=== PATIENT | female | born 1950 | race Caucasian/White ===

== ENCOUNTER 2022-04-06 20:05 | Emergency (ER) | payer MEDICARE, SELFPAY ==
--- NOTE | 2022-04-06 20:23 | CRLHL7_ITS ---
For Patients: As a result of the Century Cures Act, medical imaging exams and procedure reports are released immediately into your electronic medical record. You may view this report before your referring provider. If you have questions, please contact your health care provider. CLINICAL HISTORY: Right calf pain TECHNIQUE: A compression venous ultrasound exam was performed of the right lower extremity using heath-scale imaging, color Doppler and spectral Doppler analysis. FINDINGS: Sonographic imaging of the right lower extremity demonstrates normal compressibility and color Doppler venous blood flow within the common femoral vein, deep femoral vein, and the proximal greater saphenous vein. Within the thigh, the femoral vein is patent and compressible. At a lower level, the popliteal and posterior tibial veins also show normal compressibility and color Doppler venous blood flow. Limited imaging of the contralateral groin demonstrates a normal spectral waveform and color Doppler venous blood flow within the left common femoral vein. Along the right lateral calf there is thrombosed superficial varicose vein. IMPRESSION: No evidence of deep vein thrombosis within the right lower extremity. Thrombosed superficial varicose vein in the right lateral calf. Dictated by Ce Gleason MD @ 04/06/2022 10:15:27 PM (Electronically Signed)
[2022-04-06 20:25] VITALS: BP 135/78; PULSE 89; RESP 20; TEMP 36.7; O2SAT 99; BMI 20.3
[2022-04-06 22:38] VITALS: BP 125/70; PULSE 79; RESP 20; TEMP 36.8; O2SAT 99
--- OUTSIDE RECORDS SUMMARY | 2022-04-06 22:50 | XMS_ITS | Encounter Summary ---
:1950 Author Organization [facility] Address [address] [place] [address] Care Team Providers Name Role Phone Needs Pcp, Assignment Primary Care Provider Reason for Visit Reason Comments INJURY, LEG Encounter Details Date Type Department Care Team Description 02/03/2015 Hospital Encounter [facility] Lozano Pain of right lower extremity; Ignacia Colón MD Abrasion, leg w/o infection; [address] Contusion of leg, right, initial encounter [place] [id number] Social History Tobacco Use Types Packs/Day Years Used Date Smoking Tobacco: Never Assessed Sex Assigned at Date Recorded Not on file documented as of this encounter Last Filed Vital Signs Vital Sign Reading Time Taken Comments Blood Pressure 97/57 02/03/2015 4:39 PM CDT Pulse 71 02/03/2015 4:39 PM CDT Temperature 36.6 ??C (97.9 ??F) 02/03/2015 4:39 PM CDT Respiratory Rate 16 02/03/2015 4:39 PM CDT Oxygen Saturation - - Inhaled Oxygen Concentration - - Weight - - Height - - Body Mass Index - - documented in this encounter Medications at Time of Discharge Medication Sig Dispensed Refills Start Date End Date ALBUterol sulfate HFA 108 Inhale 2 puffs 0 2014 (90 BASE) MCG/ACT inhaler every 6 hours as needed for Wheezing. beclomethasone (QVAR) 40 Inhale 2 times 0 015 MCG/ACT inhaler daily. Rinse mouth/gargle after use. levothyroxine (SYNTHROID) Take 50 mcg by 0 2014 50 MCG tablet mouth daily (every 24 hours). ALBUterol sulfate HFA Inhale 2 puffs 0 02/03/2015 12/16/2015 inhalation every 6 hours as needed for Wheezing. beclomethasone (aka QVAR) Inhale 2 times 0 201412/16/2015 40 MCG/ACT inhalation daily. Rinse mouth/gargle after use. levothyroxine (aka Take 50 mcg by 0 02/03/2015 SYNTHROID) tablet mouth daily (every 24 hours). documented as of this encounter ED Notes Cole Lozano MD - 02/03/2015 6:13 PM CDT Images from the original note were not included. Subjective: Patient ID: Lenora Suggs is an 64 y.o. female. Chief Complaint: HPI Comments: fell off horse yesterday abrasion calf from hoof-right leg red- sore and vary swollen. Patient describes having been booked off the horse and as she was falling was hit by the foot for the horse on her right lower leg. She's noted bruising swelling and pain. Because of redness is here concerned about possible infection. She been able to walk without too much increased pain problem. Denies back or hip pain. No neck pain. Believe she is current on immunizations relating boosted a couple years ago another clinic. The history is provided by the patient. ROS Objective: BP 97/57 mmHg Pulse 71 Temp(Src) 36.6 ??C (97.9 ??F) (Oral) Resp 16 Physical Exam Constitutional: She is oriented to person, place, and time. She appears well-developed. HENT: Head: Normocephalic. Eyes: Conjunctivae are normal. Neck: Normal range of motion. Neck supple. Musculoskeletal: Legs: Neurological: She is alert and oriented to person, place, and time. She has normal reflexes. Coordination normal. Skin: She is not diaphoretic. Psychiatric: She has a normal mood and affect. Procedures X-ray right tib-fib: No evidence of acute bony abnormalities. Assessment: Diagnoses of Pain of right lower extremity, Abrasion, leg w/o infection, and Contusion of leg, right, initial encounter were pertinent to this visit. MDM Plan: A superficial abrasion will treat with topical antibacterial ointment and nonstick bandaging we applied bacitracin Telfa and a stockinette dressing. Relative to the bruising changes expected color changes are discussed the expected local warmth do to inflammation in the area. Monitor for streaking of redness up the leg or fever or increased swelling or drainage from the wound. Activities as tolerated elevate the leg to help reduce swelling. May dose some ibuprofen. Will continue with cool compresses as next 24 hours and then transition over to warm moist compress to facilitate resolution of the bruising. Patient believes she is current on immunizations provided elsewhere. documented in this encounter Miscellaneous Notes Medication History - Demarcus Sharma MD - 02/03/2015 6:13 PM CDT INPATIENT MEDS Encounter Date: 02/03/15 levothyroxine (SYNTHROID) 50 mcg tablet Start Date:-, End Date:-, Frequency:DAILY *No Administrations Recorded beclomethasone (QVAR) 40 mcg/actuation inhaler Start Date:-, End Date:-, Frequency:2 TIMES DAILY *No Administrations Recorded albuterol HFA 90 mcg/actuation inhaler Start Date:-, End Date:-, Frequency:EVERY 6 HOURS PRN *No Administrations Recorded ED AVS Snapshot - Demarcus Sharma MD - 02/03/2015 6:13 PM CDT Images from the original note were not included. [facility] [address] [place] [address] Dept: [phone] [email or web address] Lenora Suggs 02/03/2015 4:42 PM Hospital Encounter Description: Female : 1950 Department: [facility] Thank you for choosing [facility] for your health care visit with Cole Lozano MD. We are happy to care for you and provide this summary of your visit. Your primary certified caregiver iscurrently listed as Assignment Needs PCP (General). HERE IS WHAT YOU NEED TO KNOW To learn how you can take steps to stay as healthy as you can be visit [email or web address] [email or web address] References/Attachments BRUISES ([email or web address]) HERE IS WHAT YOU NEED TO DO Call your clinic if: You develop new symptoms Your symptoms worsen unexpectedly You are not improving as expected You have questions about your visit or medications HERE IS INFORMATION FROM TODAY'S VISIT Reason for Visit Leg Injury Reason for Visit History Health issues considered by your clinician today Pain of right lower extremity Abrasion, leg w/o infection Contusion of leg, right, initial encounter If you had any tests, you will be notified of your abnormal results by your clinic. We Performed the Following XR Tibia and Fibula * Right (Standard) Medications administered today None MEDICATIONS As of today's visit, these are your current medications DOSAGE albuterol HFA 90 mcg/actuation inhaler (Taking) Inhale 2 puffs every 6 hours as needed for Wheezing. beclomethasone (QVAR) 40 mcg/actuation inhaler (Taking) Inhale 2 times daily. Rinse mouth/gargle after use. levothyroxine (SYNTHROID) 50 mcg tablet (Taking) Take 50 mcg by mouth daily (every 24 hours). Vital signs from your visit Your Vital Signs Were BP Pulse Temp(Src) Resp Smoking Status 97/57 mmHg 71 36.6 ??C (97.9 ??F) (Oral) 16 Never Smoker Allergies as of 02/03/2015 Bactrim [Sulfamethoxazole-Trimethoprim] 02/03/2015 Immunization History Never Reviewed No immunizations on file. About You Date Of Sex Race Ethnicity Preferred Language 1950 Female White Non- [place] This document contains confidential information about your health and care. It is provided directlyto you for your personal, private use only. documented in this encounter Plan of Treatment Not on filedocumented as of this encounter Procedures Procedure Name Priority Date/Time Associated Diagnosis Comme nts XR TIBIA FIBULA RT Routine 02/03/2015 5:33 PM Pain of right lo wer Results for this 2 VIEWS CDT extremity procedure are i n the results section. documented in this encounter Results XR Tibia Fibula Rt 2 Views (02/03/2015 5:33 PM CDT) Anatomical Region Laterality Modality Lower Extremity, Knee, Leg, Foot & Ankle Other Specimen (Source) Anatomical Location Collection Method / Collectio n Time Received Time / Laterality Volume Narrative 02/03/2015 6:03 PM CDT COMPARISON: ??None. FINDINGS: ??No fracture of the right tib ia or fibula is identified. ??Joint spaces appear to be within normal limits. ??No other significant abnormality is identified. Procedure Note Martha Mckinley MD - 11/27/2015Formattin g of this note might be different from the original. COMPARISON: None. FINDINGS: No fracture of the right tibia or fibula is identified. Joint spaces appear to be within normal limits. No other significant abnormality is identified. Cole Lozano MD RAD GD documented in this encounter Visit Diagnoses Diagnosis Pain of right lower extremity Abrasion, leg w/o infection Hip, thigh, leg, and ankle, abrasion or friction burn, without mention of infection Contusion of leg, right, initial encount er Triage Assessment Note - Luciana Marcial RN - 02/03/2015 4:37 PM CDT fell off horse yesterday abrasion calf from hoof-right leg red-sore and vary swollen documented in this encounter Care Teams Manager Bridge Relationship Specialty Start Date End Date Needs Pcp, Assignment PCP - General 02/03/15 [place] [address] documented as of this encounter
--- OUTSIDE RECORDS SUMMARY | 2022-04-06 22:50 | XMS_ITS | Clinical Summary ---
:1950 [facility] Address [address] [place] [address] Care Team Providers Name Role Phone Needs Pcp, Assignment Primary Care Provider Source Comments You are receiving this document as you are listed as the primary care provider,follow-up provider, or the patient has been referred to you for consultation.This is in compliance with the Medicare and Medicaid EHR Incentive Program,which states Providers who transition their patient to another setting of careor provider of care or refers their patient to another provider of care shouldprovide summarycare record for each transition of care or referral. [facility] Allergies Active Allergy Reactions Severity Noted Date Comments Sulfamethoxazole-Trimethoprim 02/03/2015 Medications Medication Sig Dispensed Refills Start Date End Date Status levothyroxine Take 50 mcg by 0 02/03/2015 Active (SYNTHROID) 50 MCG mouth daily tablet (every 24 hours). beclomethasone (QVAR) 40 Inhale 2 times 0 02/03/2015 Active MCG/ACT inhaler daily. Rinse mouth/gargle after use. ALBUterol sulfate HFA Inhale 2 puffs 0 02/03/2015 Active 108 (90 BASE) MCG/ACT every 6 hours as inhaler needed for Wheezing. Social History Tobacco Use Types Packs/Day Years Used Date Smoking Tobacco: Never Smokeless Tobacco: Never Sex Assigned at Date Recorded Not on file Last Filed Vital Signs Vital Sign Reading Time Taken Comments Blood Pressure 112/62 06/09/2019 2:56 PM TEXTILE DESIGNER Pulse 73 06/09/2019 2:56 PM TEXTILE DESIGNER Temperature 36.8 ??C (98.3 ??F) 06/09/2019 2:56 PM TEXTILE DESIGNER Respiratory Rate 20 06/09/2019 2:56 PM TEXTILE DESIGNER Oxygen Saturation 100% 06/09/2019 2:56 PM TEXTILE DESIGNER Inhaled Oxygen Concentration - - Weight - - Height - - Body Mass Index - - Plan of Treatment Health Maintenance Due Date Last Done Comments Colon Cancer Screening Plan Due 1950 Hep C Screening (Preventive 1950 Services) Mammogram 1950 COVID-19 Vaccine (#1) 1950 Adult Preventive Visit 1967 DTaP/Tdap/Td (1 - Tdap) 1968 Cholesterol 1994 Zoster/Shingles (1 of 2) 1999 Pneumococcal 65+ Yrs (1 - PCV) 2014 Influenza (#1) 2022 HepA Aged Out No longer eligib le based on patient's age to complete this topic HepB Aged Out No longer eligib le based on patient's age to complete this topic Hib Aged Out No longer eligib le based on patient's age to complete this topic IPV (Polio) Aged Out No longer eligib le based on patient's age to complete this topic MCV4 Aged Out No longer eligib le based on patient's age to complete this topic Care Teams Plug Drill Operator Relationship Specialty Start Date End Date Needs Pcp, Assignment PCP - General 02/03/15 [place] [address]
--- OUTSIDE RECORDS SUMMARY | 2022-04-06 22:50 | XMS_ITS | Encounter Summary ---
:1950 Author Organization [facility] Address [address], [place] [address] Care Team Providers Name Role Phone Needs Pcp, Assignment Primary Care Provider Encounter Details Date Type Department Care Team Description 08/22/2015 Notes/Orders CODING DEPT ONLY 5050 Needs Pcp, Assignment [facility] [place] [facility] [address] [place] [address] [address] Social History Tobacco Use Types Packs/Day Years Used Date Smoking Tobacco: Never Assessed Sex Assigned at Date Recorded Not on file documented as of this encounter Plan of Treatment Not on filedocumented as of this encounter Visit Diagnoses Not on filedocumented in this encounter Care Teams Drying Room Operator Relationship Specialty Start Date End Date Needs Pcp, Assignment PCP - General 02/03/15 [place] [address] documented as of this encounter
--- OUTSIDE RECORDS SUMMARY | 2022-04-06 22:50 | XMS_ITS | Clinical Summary ---
:1950 Author Organization [facility] [place] [address] Care Team Providers Name Role Phone Abi Mccracken Primary Care Provider [phone] Allergies Active Allergy Reactions Severity Noted Date Comments Sulfamethoxazole-Trimethoprim Rash 03/25/2015 Happened around 1980 Medications Medication Sig Dispensed Refills Start Date End Date Status albuterol HFA (PRO-AIR; Inhale 1-2 Puffs 0 Active VENTOLIN; PROVENTIL) 90 by mouth every 4 mcg/actuation inhaler hours if needed. Qvar RediHaler 80 Inhale 1 Puff by 0 09/21/2020 Active mcg/actuation HFAb HFA mouth 2 times inhaler daily. 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 Active Problems Problem Noted Date Congenital hypothyroidism without goiter Encounters Date Type Specialty Care Team Description 02/14/2022 Refill Abi Mccracken PA R efill Request (Synthroid) from Last 3 Months Immunizations Name Administration Dates Next Due Influenza, IIV3 (Age >=3 years) 04/04/2006 Pneumococcal Poly,23-Valent (Pneumovax) 11/04/2008 Tdap 10/04/2007 Family History Medical History Relation Name Comments Osteoarthritis Brother 1 Good Health Brother 2 Cancer-colon Father Hypothyroidism Father Leukemia Father Rheum arthritis Maternal Grandmother Cancer-colon Mother Hiatal hernia Mother Good Health Sister Cancer-breast No Family History Relation Name Status Comments Brother 1 Brother 2 Father (Age 89) Born 1920 Maternal Grandmother Mother (Age 85) Born 1925 Sister Social History Tobacco Use Types Packs/Day Years Used Date Never Smoker Smokeless Tobacco: Never Used Alcohol Use Standard Drinks/Week Comments Not Currently 0 (1 standard drink = 0.6 oz pure alcoho l) rarely Alcohol Habits Answer Date Recorded How often do you have a drink containing alcohol? Not asked How many drinks containing alcohol do you have on a typical Not asked day when you are drinking? How often do you have six or more drinks on one occasion? No t asked Comment: rarely 01/17/2021 Sex Assigned at Date Recorded Not on file Obstetrics History Para Term AB IAB SAB Ectopic Multiple Living Live Births 4 3 Date Outcome GA Total Labor/2nd/3rd Weight Sex Delivery Anes PTL Coleen A 1 A5 Name Clin Labor Para Para Para Comments Menarche occurred at age 16. Menopausal since 2000. No history of abnormal PAPs. Last Filed Vital Signs Vital Sign Reading Time Taken Comments Blood Pressure 116/64 01/18/2021 8:44 AM CDT Pulse 63 01/18/2021 8:44 AM CDT Temperature - - Respiratory Rate - - Oxygen Saturation - - Inhaled Oxygen Concentration - - Weight 49.9 kg (110 lb) 01/18/2021 8:44 AM CDT Height 163.8 cm (5' 4.5) 01/18/2021 8:44 AM CDT Body Mass Index 18.59 01/18/2021 8:44 AM CDT Plan of Treatment Health Maintenance Due Date Last Done Comments COVID-19 vaccine series (#1) 1950 Zoster (shingles) series for age 50+ (1 of 1999 2) Pneumococcal series for age 65+ (2 - PCV) 11/04/20092008 Mammogram for age 45-75 07/11/2017 07/11/2016, 11/09/2008 Tetanus booster 10/03/2017 10/04/2007 BMI (ht and wt on same day) for age 18+ 01/18/2022 01/19/20 21 Depression screening for age 12+ 01/18/2022 01/18/2021 Medicare Wellness for age 65+ 01/18/2022 01/18/2021 Influenza for age 65+ 02/08/2022 04/04/2006 Fecal testing sDNA-FIT (Cologuard) for age 1003/21/202403/21 45-75 Lipids for age 45-75 01/18/2026 01/18/2021 Tdap Completed 10/04/2007 DEXA/DXA scan for age 65+ Completed 01/18/2021 Hepatitis C screening for age 18-79 Completed 01/18/2021 Results Not on filefrom Last 3 Months Insurance Payer Benefit Plan / Subscriber ID Effective Dates Phone Addre ss Type Group [employer] [place] [employer] MEDICARE [id number] 2019-Present [address] [place] [address] Care Teams Kelp Or Seagrass Gatherer Relationship Specialty Start Date End Date Abi Mccracken PA PCP - General Physician Aviation Maintenance Technician 01/18/21 [id number] [address] [place], [place] [id number]
--- OUTSIDE RECORDS SUMMARY | 2022-04-06 22:50 | XMS_ITS | Encounter Summary ---
:1950 Author Organization [employer] Address [address] [place] [address] Care Team Providers Name Role Phone Needs Pcp, Assignment Primary Care Provider Encounter Details Date Type Department Care Team Description 06/09/2019 Hospital Encounter [facility] Adebayo Gray, Amenorrhea; Care MD Acute bronchitis, unspecified organism; [address] [address] Pain of left lower extremity; [address] [employer] Mild asthma with acute exacerbation, [place] [address] [phone] Social History Tobacco Use Types Packs/Day Years Used Date Smoking Tobacco: Never Smokeless Tobacco: Never Sex Assigned at Date Recorded Not on file documented as of this encounter Last Filed Vital Signs Vital Sign Reading Time Taken Comments Blood Pressure 112/62 06/09/2019 2:56 PM CONDOMINIUM MANAGER Pulse 73 06/09/2019 2:56 PM CONDOMINIUM MANAGER Temperature 36.8 ??C (98.3 ??F) 06/09/2019 2:56 PM CONDOMINIUM MANAGER Respiratory Rate 20 06/09/2019 2:56 PM CONDOMINIUM MANAGER Oxygen Saturation 100% 06/09/2019 2:56 PM CONDOMINIUM MANAGER Inhaled Oxygen Concentration - - Weight - - Height - - Body Mass Index - - documented in this encounter Discharge Instructions Discharge InstructionsAdebayo Gray MD - 06/09/2019 3:38 PM CST Images from the original note were not included. Bronchitis: Care Instructions Your Care Instructions Bronchitis is inflammation of the bronchial tubes, which carry air to the lungs. The tubes swell andproduce mucus, or phlegm. The mucus and inflamed bronchial tubes make you cough. You may have trouble breathing. Most cases of bronchitis are caused by viruses like those that cause colds. Antibiotics usually do not help and they may be harmful. Bronchitis usually develops rapidly and lasts about 2 to 3 weeks in otherwise healthy people. Follow-up care is a loomis part of your treatment and safety. Be sure to make and go to all appointments, and call your doctor if you are having problems. It's also a good idea to know your test results and keep a list of the medicines you take. How can you care for yourself at home? ?? Take all medicines exactly as prescribed. Call your doctor if you think you are having a problem with your medicine. ?? Get some extra rest. ?? Take an loku-irs-xkkchoz pain medicine, such as acetaminophen (Tylenol), ibuprofen (Advil, Motrin), or naproxen (Aleve) to reduce fever and relieve body aches. Read and follow all instructions on the label. ?? Do not take two or more pain medicines at the same time unless the doctor told you to. Many pain medicines have acetaminophen, which is Tylenol. Too much acetaminophen (Tylenol) can be harmful. ?? Take an qpdf-ukx-dzerebi cough medicine that contains dextromethorphan to help quiet a dry, hacking cough so that you can sleep. Avoid cough medicines that have more than one active ingredient. Readand follow all instructions on the label. ?? Breathe moist air from a humidifier, hot shower, or sink filled with hot water. The heat and moisture will thin mucus so you can cough it out. ?? Do not smoke. Smoking can make bronchitis worse. If you need help quitting, talk to your doctor about stop-smoking programs and medicines. These can increase your chances of quitting for good. When should you call for help? Call anytime you think you may need emergency care. For example, call if: ? You have severe trouble breathing. ?? Call your doctor now or seek immediate medical care if: ? You have new or worse trouble breathing. ? You cough up dark brown or bloody mucus (sputum). ? You have a new or higher fever. ? You have a new rash. ??Watch closely for changes in your health, and be sure to contact your doctor if: ? You cough more deeply or more often, especially if you notice more mucus or a change in the color of your mucus. ? You are not getting better as expected. Where can you learn more? 1. Go to https://[employer]/Cloudynrary or [employer]. 2. Enter H333 in the search box. Current as of: November 16, 2018 Content Version: 12.2 ?? 2762-6269 [employer]. Care instructions adapted under license by your healthcare professional. If you have questions about a medical condition or this instruction, always ask your healthcare professional. [employer] disclaims any warranty or liability for your use of this information. OMINIUM MANAGER documented in this encounter Medications at Time [...] MCG tablet mouth daily (every 24 hours). predniSONE (DELTASONE) 20 Take 1 Tablet by 5 Tablet 0 05/1206/14/2019 MG tablet mouth daily for 5 days. documented as of this encounter ED Notes Adebayo Gray MD - 06/09/2019 3:49 PM CST Images from the original note were not included. SUBJECTIVE: Lenora Suggs is a 69 y.o.female presented today to the clinic complaining of cough that started since 05/25/2019. Patient stated that the cough is dry and associated with chills. She alsostated that it associated with low-grade fever that has resolved. Her highest temperature was 100.5??. She also feels generalized body ache. She has history of asthma, she has been only on albuterol p.r.n.. She stated that she has not used it yet. She denies any shortness of breath or wheezing. She also complain of left lower leg pain. She stated that she slipped and fell on eyes 1 month ago. She has been having this pain on and off since then. She denies any difficulty ambulating. She rated the pain mild in severity. Adverse Drug Reactions: Sulfamethoxazole-trimethoprim Medications: ALBUterol sulfate HFA, beclomethasone, and levothyroxine Past medical History: There is no problem list on file for this patient. Family History: No family history on file. Social History: Social History Tobacco Use ??? Smoking status: Never Smoker ??? Smokeless tobacco: Never Used Substance Use Topics ??? Alcohol use: Not on file ??? Drug use: Not on file Review of Systems: All systems were reviewed and found to be negative except as noted below. OBJECTIVE: General: NAD Skin: Mucous membranes are moist, no sign of dehydration. Head: Normocephalic. Eyes: PERRLA, full EOM. External exams normal. Ears: Normal pinnae, canals. TMs: normal Nose: Patent, without deformity, but with some rhinorrhea. Throat: Postnasal drainage noted. Moist mucous membranes without lesions, erythema, or exudate. Neck: Supple. Respiratory: Normal respiratory effort. Bilateral mild rhonchi. No rales. Heart: RR without murmurs, rubs, or gallops. Musculoskeletal: Tenderness in the lateral left lower leg mostly around the upper part. Gait is normal. Power is 5/5 in severity. Reflexes +2 bilaterally. No swelling or redness noted. Vital Signs: BP 112/62 (BP Location: Left Arm, BP Cuff Size: Regular) Pulse 73 Temp 36.8 ??C (98.3 ??F) (Oral) Resp 20 SpO2 100% ? No X-Rays: X-rays are obtained and interpreted independently by myself: No results found. Labs: Labs Reviewed HCG,QUALITATIVE, SERUM Orders Placed This Encounter ??? Test Screen Blood (SPREG) ??? predniSONE (DELTASONE) 20 MG tablet ASSESSMENT: 2. Acute bronchitis, unspecified organism 3. Pain of left lower extremity 4. Mild asthma with acute exacerbation, unspecified whether persistent (HRC) PLAN: Medications - No data to display Medications Prescribed this Visit Disp Refills Start End predniSONE (DELTASONE) 20 MG tablet 5 Tablet 0 06/09/2019 06/14/2019 Take 1 Tablet by mouth daily for 5 days. Oral Cough most likely viral bronchitis. Given her history of asthma will prescribe prednisone if her symptoms get worse to start taking it. For now she will start using albuterol every 4 hours as needed. Regarding her leg pain, as most likely musculoskeletal. Patient is reassured. Icing and jopq-gri-okwcdkf medication advised. If pain gets worse she needs to return back or follow up with primary care. Side effects were discussed. Increase clear fluid intake. Symptomatic care, plenty of fluids, monitor for fever, chills, chest pain, or shortness of breath. RTC p.r.n. OMINIUM MANAGER documented in this encounter Plan of Treatment Scheduled Orders Name Type Priority Associated Diagnoses Order S chedule Test Screen Lab STAT Amenorrhea Once t ramona starting now Blood (SPREG) for 1 Occurren helena starting 06/16/2019 unti l 06/16/2019 documented as of this encounter Visit Diagnoses Diagnosis Amenorrhea Absence of menstruation Acute bronchitis, unspecified organism Pain of left lower extremity Mild asthma with acute exacerbation, uns pecified whether persistent (HRC) Triage Assessment Note - Isis Myers RN - 06/09/2019 2:51 PM CST Pt has had cold symptoms, sinus pressure, and a productive cough since May 25. She had intermittent fever, body aches, and weakness. Tmax 100.5F. She also slipped on the snow last month and has had intermittent leg aches. She has been having morepain in that leg recently. OMINIUM MANAGER documented in this encounter Care Teams Health Analyst Relationship Specialty Start Date End Date Needs Pcp, Assignment PCP - General 02/03/15 [place] [address] documented as of this encounter
[2022-04-06 23:42] VITALS: BP 125/70; PULSE 79; RESP 20; TEMP 36.8
--- NOTE | 2022-04-07 00:55 | ED_ITS ---
HPI - General Adult General Date Seen: 04/06/22 Chief complaint: Unspecified Complaint, Adult Stated complaint: Blood clot right leg Time Seen by Provider: 04/06/22 21:44 Source: patient Mode of arrival: ambulatory Limitations: no limitations History of Present Illness HPI narrative: Patient is a delightful 72-year-old female presents here with the swelling on her right leg today and worried that she has a blood clot. He has noted today she has had in the past, she has has no history of previous DVTs however, and no history of use of anticoagulants. She has really no immobilization no history of cancer. But presents here to the emergency room for evaluation of this. It is on her right lower extremity. On her calf. She denies a history of rapid heart rate chest pain coughing passing out, or hemoptysis Related Data Home Medications Medication Instructions Recorded Confirmed albuterol sulfate 90 mcg/actuation inhalation 01/16/22 01/16/22 aerosol inhaler beclomethasone dipropionate 80 inhalation 01/16/22 01/16/22 mcg/actuation HFA breath activated aerosol (Qvar RediHaler) fluticasone propionate 50 spray intranasal 01/16/22 01/16/22 mcg/actuation nasal spray,suspension levothyroxine 50 mcg tablet 50 mcg PO 01/16/22 01/16/22 (Synthroid) Previous Rx's Medication Instructions Recorded albuterol sulfate 90 mcg/actuation 2 puff inhalation Q6H PRN 01/16/22 aerosol inhaler (Ventolin HFA) shortness of breath or wheezing #8.5 grams azithromycin 250 mg tablet 250 mg PO QDAY #6 tabs 01/16/22 Allergies Allergy/AdvReac Type Severity Reaction Status Date / Time sulfamethoxazole Allergy Mild Rash Verified 01/16/22 13:35 [From Bactrim] trimethoprim [From Bactrim] Allergy Mild Rash Verified 01/16/22 13:35 Review of Systems Status of ROS: Reports: 10 or more systems reviewed and unremarkable except as noted in History and below PFSH PFS Medical History Asthma DVT (deep venous thrombosis) Surgical History No significant past surgical history Social History Smoking Status: Never smoker Second hand tobacco smoke exposure: No How often do you have a drink containing alcohol: never How often do you have six or more drinks on one occasion: Never AUDIT-C Alcohol total score: 0 Non-prescribed substance use: denies use Exam Narrative: Exam Narrative: On examination there is a superficial area within 1 of the varicosities on her right leg, consistent with a superficial thrombophlebitis. There is no calf swelling, her distal pulses are normal, and there is no open wounds. Const: Vital Signs, click to edit/add: Vital Signs - 24 hr 04/06/22 20:25 04/06/22 22:38 04/06/22 23:42 Temperature 98.0 F 98.2 F 98.2 F Pulse Rate [Right Pulse Oximeter] 89 79 79 Respiratory Rate 20 20 20 Blood Pressure [Ri ght Upper Arm] 135/78 125/70 125/70 Pulse Oximetry 99 99 Oxygen Delivery Me thod Room Air Room Air Documenting provider has reviewed patient's vital signs: yes Course Vital Signs Vital signs: Initial Vital Signs Temperature 98.0 F 04/06/22 20:25 Temperature Source Temporal Artery Scan 04/06/22 20:25 Pulse Rate 89 04/06/22 20:25 Respiratory Rate 20 04/06/22 20:25 Blood Pressure 135/78 04/06/22 20:25 Blood Pressure Mean 97 04/06/22 20:25 Blood Pressure Position Sitting 04/06/22 20:25 Pulse Oximetry 99 04/06/22 20:25 Oxygen Delivery Method 04/06/22 20:25 Vital Signs Temperature 98.0 F 04/06/22 20:25 Pulse Rate 89 04/06/22 20:25 Respiratory Rate 20 04/06/22 20:25 Blood Pressure 135/78 04/06/22 20:25 Pulse Oximetry 99 04/06/22 20:25 Oxygen Delivery Method 04/06/22 20:25 Temperature 98.2 F 04/06/22 23:42 Pulse Rate 79 04/06/22 23:42 Respiratory Rate 20 04/06/22 23:42 Blood Pressure 125/70 04/06/22 23:42 Pulse Oximetry 99 04/06/22 22:38 Oxygen Delivery Method 04/06/22 22:38 Medical Decision Making Differential Diagnosis Differential Diagnosis: DVT, superficial thrombophlebitis, venous stasis, muscle rupture, celluliti Medical Records Medical records reviewed: Yes I reviewed the patient's medical records Imaging Data Venous US: Radiologist's impression: Patient: IRVING GIVENS Facility: [facility] Site . Site : 1950 Study: US Extremity Right LEV RT-04/06/2022 9:35:01 PM Ordering Physician: DAMEON NORWOOD Final Report: CLINICAL HISTORY: Right calf pain TECHNIQUE: A compression venous ultrasound exam was performed of the right lower extremity using heath-scale imaging, color Doppler and spectral Doppler analysis. FINDINGS: Sonographic imaging of the right lower extremity demonstrates normal compressibility and color Doppler venous blood flow within the common femoral vein, deep femoral vein, and the proximal greater saphenous vein. Within the thigh, the femoral vein is patent and compressible. At a lower level, the popliteal and posterior tibial veins also show normal compressibility and color Doppler venous blood flow. Limited imaging of the contralateral groin demonstrates a normal spectral waveform and color Doppler venous blood flow within the left common femoral vein. Along the right lateral calf there is thrombosed superficial varicose vein. IMPRESSION: No evidence of deep vein thrombosis within the right lower extremity. Thrombosed superficial varicose vein in the right lateral calf. Dictated by Ce Gleason MD @ 04/06/2022 10:15:27 PM (Electronic Signature) Discharge Plan Discharge Clinical Impression: Acute superficial venous thrombosis of right lower extremity Patient Disposition: Home, Self-Care Condition: Stable Instructions: Superficial Thrombophlebitis (ED) Additional Instructions: Home rest use of heat, aspirin 1 tablet in the morning 1 tablet at night, the 325. Stall or Prescriptions: No Action albuterol sulfate 90 mcg/actuation HFA aerosol inhaler inhalation levothyroxine [Synthroid] 50 mcg tablet 50 mcg PO Qvar RediHaler 80 mcg/actuation HFA aerosol breath activated inhalation fluticasone propionate 50 mcg/actuation spray,suspension intranasal azithromycin 250 mg tablet 250 mg PO QDAY Qty: 6 0RF Rx Instructions: For 250 mg dose pack: take 500 mg today (day 1), then 250 mg for 4 days (days 2-5) PO albuterol sulfate [Ventolin HFA] 90 mcg/actuation HFA aerosol inhaler 2 puff inhalation Q6H PRN (Reason: shortness of breath or wheezing) Qty: 8.5 0RF Follow Up/Referrals: Kelley Blair PA-C [Primary Care Provider] - Stand Alone Forms: [employer] Info Instructions
== END 2022-04-06 23:42 | disposition home or self-care (01) ==
LOC: ED 22:48
PROVIDERS: Emergency Provider Family Medicine; PCP Physician Assistant Medical
DX: I82.401 Acute embolism and thrombosis of unspecified deep veins of right lower extremity (principal)
CPT/HCPCS: 93971; 99283; 99284

== ENCOUNTER 2022-04-25 10:38 | Outpatient (CLI) | payer MEDICARE, SELFPAY ==
--- OUTSIDE RECORDS SUMMARY | 2022-04-25 11:03 | XMS_ITS | Clinical Summary ---
:1950 Author Organization [facility] [place] [address] Care Team Providers Name Role Phone Abi Mccracken Primary Care Provider [phone] Allergies Active Allergy Reactions Severity Noted [...] ss Type Group UCARE MR [place] MEDICARE [id number] 2019-Present [address] [place] [address] Care Teams Mechanical Energy Engineer Relationship Specialty Start Date End Date Abi Mccracken PA PCP - General Physician Health Promotion Coordinator 01/18/21 [address] [place], [place] [id number]
--- OUTSIDE RECORDS SUMMARY | 2022-04-25 11:03 | XMS_ITS | Encounter Summary ---
:1950 Author Organization [employer] Address [address], [place] [address] Care Team Providers Name Role Phone Needs Pcp, Assignment Primary Care Provider Encounter Details Date Type Department Care Team Description 06/09/2019 Hospital Encounter [facility] Adebayo Gray, Amenorrhea; Care MD Acute bronchitis, unspecified organism; [address] [place] [address] Pain of left lower extremity; [address] [employer] Mild asthma with acute exacerbation, uns [place] [address] [phone] Social History Tobacco Use Types Packs/Day Years Used Date Smoking Tobacco: Never Smokeless Tobacco: Never Sex Assigned at Date Recorded Not on file documented as of this encounter Last Filed Vital Signs Vital Sign Reading Time Taken Comments Blood Pressure 112/62 06/09/2019 2:56 PM GLASS DRILLER Pulse 73 06/09/2019 2:56 PM GLASS DRILLER Temperature 36.8 ??C (98.3 ??F) 06/09/2019 2:56 PM GLASS DRILLER Respiratory Rate 20 06/09/2019 2:56 PM GLASS DRILLER Oxygen Saturation 100% 06/09/2019 2:56 PM GLASS DRILLER Inhaled Oxygen Concentration - - Weight - [...] Get some extra rest. ?? Take an yycy-poq-xmdhakg pain medicine, such as acetaminophen (Tylenol), ibuprofen [...] (Tylenol) can be harmful. ?? Take an bfxu-obo-uibnliq cough medicine that contains dextromethorphan to help [...] can you learn more? 1. Go to https://[employer]/Gen[employer]rary or [employer]. 2. Enter H333 in the search box. Current as of: November 16, 2018 Content Version: 12.2 ?? [id number] [employer]. Care instructions adapted under license by your healthcare professional. If you have questions about a medical condition or this instruction, always ask your healthcare professional. [employer] disclaims any warranty or liability for your use of this information. S DRILLER documented in this encounter Medications at Time [...] likely musculoskeletal. Patient is reassured. Icing and geol-bae-nevrqxl medication advised. If pain gets worse she needs to return back or follow up with primary care. Side effects were discussed. Increase clear fluid intake. Symptomatic care, plenty of fluids, monitor for fever, chills, chest pain, or shortness of breath. RTC p.r.n. S DRILLER documented in this encounter Plan of Treatment [...] been having morepain in that leg recently. S DRILLER documented in this encounter Care Teams Lead Die Molder Relationship Specialty Start Date End Date Needs Pcp, Assignment PCP - General 02/03/15 [place] [address] documented as of this encounter
--- OUTSIDE RECORDS SUMMARY | 2022-04-25 11:03 | XMS_ITS | Clinical Summary ---
:1950 Author Organization [employer] Address [address] [place] [address] Care Team Providers Name Role Phone Needs [...] for each transition of care or referral. [employer] Allergies Active Allergy Reactions Severity Noted Date [...] Blood Pressure 112/62 06/09/2019 2:56 PM GLASS TECHNICIAN Pulse 73 06/09/2019 2:56 PM GLASS TECHNICIAN Temperature 36.8 ??C (98.3 ??F) 06/09/2019 2:56 PM GLASS TECHNICIAN Respiratory Rate 20 06/09/2019 2:56 PM GLASS TECHNICIAN Oxygen Saturation 100% 06/09/2019 2:56 PM GLASS TECHNICIAN Inhaled Oxygen Concentration - - Weight - [...] age to complete this topic Care Teams Clinical Project Leader Relationship Specialty Start Date End Date Needs Pcp, Assignment PCP - General 02/03/15 [place], [place] [address]
--- OUTSIDE RECORDS SUMMARY | 2022-04-25 11:03 | XMS_ITS | Encounter Summary ---
:1950 Author Organization [facility] Address [address], [place] [address] Care Team Providers Name Role Phone Needs Pcp, Assignment Primary Care Provider Encounter Details Date Type Department Care Team Description 08/22/2015 Notes/Orders CODING DEPT ONLY 5050 Needs Pcp, Assignment [facility] [place] [facility] [address] [address] Social History Tobacco Use Types Packs/Day Years Used Date Smoking Tobacco: Never Assessed Sex Assigned at Date Recorded Not on file documented as of this encounter Plan of Treatment Not on filedocumented as of this encounter Visit Diagnoses Not on filedocumented in this encounter Care Teams Director Of Premium Seat Sales Relationship Specialty Start Date End Date Needs Pcp, Assignment PCP - General 02/03/15 [place] [address] documented as of this encounter
--- OUTSIDE RECORDS SUMMARY | 2022-04-25 11:03 | XMS_ITS | Encounter Summary ---
:1950 Author Organization [employer] Address [address] [address] Care Team Providers Name Role Phone Needs Pcp, Assignment Primary Care Provider Reason for Visit Reason Comments INJURY, LEG Encounter Details Date Type Department Care Team Description 02/03/2015 Hospital Encounter [facility] Cole Lozano Pain of right lower extremity; Ignacia Colón MD Abrasion, leg w/o infection; [address] Contusion of leg, right, initial encounter [email or web address] [address] Social History Tobacco Use Types Packs/Day Years [...] from the original note were not included. [facility] [address] [place] [address] Dept: [phone] [email or web address] Lenora Suggs 02/03/2015 4:42 PM Hospital Encounter Description: Female : 1950 Department: [facility] Thank you for choosing [facility] for your health care visit with Cole Lozano MD. We are happy to care for you and provide this summary of your visit. Your primary direct care worker iscurrently listed as Assignment Needs PCP (General). HERE IS WHAT YOU NEED TO KNOW To learn how you can take steps to stay as healthy as you can be visit [email or web address] Discharge References/Attachments BRUISES (TONGAN) HERE IS WHAT YOU NEED TO DO [...] Ethnicity Preferred Language 1950 Female White Non- Latvian This document contains confidential information about your [...] swollen documented in this encounter Care Teams Driver License Technician Relationship Specialty Start Date End Date Needs Pcp, Assignment PCP - General 02/03/15 [place] [address] documented as of this encounter
[2022-04-25 21:22] LABS: Albumin* 4.6 g/dL (3.3-5.0)
[2022-04-25 21:23] LABS: Chloride* 105 mmol/L (96-114); Potassium* 4.2 mmol/L (3.6-5.1); Sodium* 139 mmol/L (135-149)
[2022-04-25 21:25] LABS: Aspartate Amino Transferase* 26 U/L (12-35); Blood Urea Nitrogen* 24 mg/dL (7-30); Carbon Dioxide* 28 mmol/L (20-32); Cholesterol* 218 mg/dL (90-199); Creatinine* 1.1 mg/dL (0.5-1.5); Estimated Glomerular Filt Rate 53 ml/min; Total Protein* 7.6 g/dL (6.0-8.3)
[2022-04-25 21:26] LABS: Alanine Aminotransferase* 22 U/L (4-35); Alkaline Phosphatase* 74 U/L (40-150); Calcium* 9.5 mg/dL (8.4-10.6); Glucose* 115 mg/dL (60-115); HDL Cholesterol* 83 mg/dL (>=50); LDL Cholesterol Calculated 118 mg/dL (<100); Triglycerides* 84 mg/dL (40-149)
[2022-04-25 21:46] LABS: Vitamin D 25 Hydroxy* 56 ng/mL (30-80)
== END 2022-04-25 10:39 | disposition home or self-care (01) ==
PROVIDERS: PCP Physician Assistant Medical; Visit Provider Physician Assistant Medical
DX: Z00.00 Encounter for general adult medical examination without abnormal findings (principal); E06.3 Autoimmune thyroiditis; E55.9 Vitamin D deficiency, unspecified; Z13.6 Encounter for screening for cardiovascular disorders
CPT/HCPCS: 80053; 80061; 82306; 84443; 87086

== ENCOUNTER 2022-08-08 10:09 | Outpatient (CLI) | payer MEDICARE, SELFPAY ==
--- NOTE | 2022-08-08 10:15 | CRLHL7_ITS ---
For Patients: As a result of the Century Cures Act, medical imaging exams and procedure reports are released immediately into your electronic medical record. You may view this report before your referring provider. If you have questions, please contact your health care provider. BILATERAL SCREENING MAMMOGRAM WITH COMPUTER-AIDED DETECTION AND TOMOSYNTHESIS TECHNIQUE: CC and MLO views were obtained. These mammographic images have been obtained using full-field digital technique. These mammographic images were interpreted with the benefit of computer-aided detection. Breast Tomosynthesis was used in this interpretation. COMPARISON FILM: [employer] 07/31/16, US RT 12/22/08, 11/09/08. FINDINGS: The breasts are heterogeneously dense, which may obscure small masses IMPRESSION: There is no radiographic evidence for malignancy. ASSESSMENT: BI-RADS Category 2: Benign RECOMMENDATION: Routine screening mammogram in 1 year. A lay language report of this examination will be provided to the patient. Wilder Ronquillo M.D. Diagnostic/Nuclear Medicine Radiologist [email or web address] DOMINIK/Dictated by: Wilder Ronquillo MD @ 08/08/2022 11:22:00 AM (Electronically Signed)
== END 2022-08-08 10:10 | disposition home or self-care (01) ==
LOC: MAMMO 10:10
PROVIDERS: PCP Physician Assistant Medical; Visit Provider Physician Assistant Medical
DX: Z12.31 Encounter for screening mammogram for malignant neoplasm of breast (principal); R92.2 Inconclusive mammogram
CPT/HCPCS: 77063; 77067

== ENCOUNTER 2024-03-04 11:37 | Outpatient (CLI) | payer MEDICARE, SELFPAY ==
--- OUTSIDE RECORDS SUMMARY | 2024-03-04 11:40 | XMS_ITS | Clinical Summary ---
Author Organization [place] Address [address] [place] [address] Care Team Providers Care Pet Training Instructor Name Role Phone Clinic, [facility] Primary Care Provide r Allergies Active Allergy Reactions Criticality Noted Date Comments Sulfamethoxazole-Trimethoprim 2014 Medications Medication Sig Dispensed Refills Start Date End Date Status Levothyroxine Sodium (SYNTHROID PO) Active beclomethasone (QVAR) 40 MCG/ACT Inhaler Inhale 2 puffs into the lungs 2 times daily Active order for DMEIndications:Open wound Equipment being ordered: [employer] Order Primary Dressing Endoform Qty 10 Length of Need: 1 month Frequency of dressing change: daily 30 days 0 05/02/2015 Active Social History Tobacco Use Types Packs/Day Years Used Date Smoking Tobacco: Never Alcohol Use Standard Drinks/Week Comments No 0 (1 standard drink = 0.6 oz pur e alcohol) Adolescent Education Answer Date Record ed Getting School Help Needed Not on file 08/16 Sex and Gender Information Value Date Recorded Sex Assigned at Not on file Gender Identity Not on file Sexual Orientation Not on file Last Filed Vital Signs Vital Sign Reading Time Taken Comments Blood Pressure 173/97 08/17/2023 11:24 PM SAW REPAIRER Pulse 70 08/17/2023 11:24 PM SAW REPAIRER Temperature 36.7 ??C (98 ??F) 08/17/2023 11:24 PM SAW REPAIRER Respiratory Rate 18 08/17/2023 11:24 PM SAW REPAIRER Oxygen Saturation 99% 08/17/2023 11:24 PM SAW REPAIRER Inhaled Oxygen Concentration - - Weight 57.2 kg (126 lb) 06/28/2015 8:00 PM SAW REPAIRER Height 165.1 cm (5' 5) 06/28/2015 8:00 PM SAW REPAIRER Body Mass Index 20.97 06/28/2015 8:00 PM SAW REPAIRER Plan of Treatment Health Maintenance Due Date Last Done Comments ADVANCE CARE PLANNING 1950 ANNUAL REVIEW OF HM ORDERS 1949 CT COLONOGRAPHY 1950 DEXA 1950 FIT 1950 FLEX SIG 1949 GLUCOSE 1949 TSH W/FREE T4 REFLEX 1949 HEPATITIS C SCREENING 1967 LIPID 1989 ZOSTER IMMUNIZATION (1 of 2) 1999 FALL RISK ASSESSMENT 2014 Pneumococcal Vaccine: 65+ Years (2 of 2 - PCV) 2014 11/04/2008 COLONOSCOPY 10/13/2015 10/12/2005 DTAP/TDAP/TD IMMUNIZATION (2 - Td or Tdap) 10/03/2017 10/04/2007 MAMMO SCREENING 07/11/2018 07/11/2016 MEDICARE ANNUAL WELLNESS VISIT 01/18/2022 01/18/2021, 07/30/2017 PHQ-2 (once per calendar year) 2023 COVID-19 Vaccine (1 - 2023-2 5 season) 2024 INFLUENZA VACCINE (#1) 2024 04/04/2006 COLORECTAL CANCER SCREENING 03/21/2024 sDNA (Cologuard) 03/21/2024 03/21/2021, 03/21/2021, 03/10/2018 RSV VACCINE (1 - 1-dose 75+ series) 2024 HPV IMMUNIZATION Aged Out No longer e ligible based on patient's age to complete this topic MENINGITIS IMMUNIZATION Aged Out No l onger eligible based on patient's age to complete this topic RSV MONOCLONAL ANTIBODY Aged Out No l onger eligible based on patient's age to complete this topic Procedures Procedure Name Priority Date/Time Associated Diagnosis Comments COLONOSCOPY Routine 10/12/2005 9:20 AM CDT from Last 3 Months or Most Recently Relevant to Health Maintenance Results * COLONOSCOPY (10/12/2005 9:20 AM CDT) COLONOSCOPY Endoscopy Patient Name: Lenora Suggs ?Gender: F ? Procedure Date: 10/12/2005 9:20 AM ? Date of : 1950 ? Age: 55 ? Admit Type: Outpatient ? Attending MD: Juni Kendrick ? Procedure: ?Colonoscopy Indications: ?Avg risk screening for malignant neoplasm in the colon Providers: ?Juni Kendrick MD Referring : ?? Santy Clarke MD Medicines: ?Fentanyl 100 mcg IV, Midazolam 2 mg IV, Atropine 0.6 mg IV Complications: ??No immediate complications Procedure: ?- A History and Physical has been performed, and patient ?medication allergies have been reviewed. The patient The ?risks and benefits of the procedure and the sedation options ?and risks were discussed with the patient. All questions were ?answered and informed consent was obtained. Patient ?identification and proposed procedure were verified prior to ?the procedure by the physician in the procedure room. Mental ?Status Examination: normal. Respiratory Examination: clear to ?auscultation. CV Examination: normal. ASA Grade Assessment: ?P1 A normal healthy patient. After reviewing the risks and ?benefits, the patient was deemed in satisfactory condition to ?undergo the procedure. The anesthesia plan was to use ?moderate sedation / analgesia (conscious sedation). ?Immediately prior to administration of medications, the ?patient was re-assessed for adequacy to receive sedatives. ?The heart rate, respiratory rate, oxygen saturations, blood ?pressure, adequacy of pulmonary ventilation, and response to ?care were monitored throughout the procedure. The physical ?status of the patient was re-assessed after the procedure. ?After obtaining informed consent, the colonoscope was passed ?under direct vision. Throughout the procedure, the patient's ?blood pressure, pulse, and oxygen saturations were monitored ?continuously. The [facility]-Q180AL #[id number] was introduced through ?the anus and advanced to the cecum, identified by appendiceal ?orifice & IC valve. The colonoscopy was accomplished without ?difficulty. The patient tolerated the procedure well. The ?quality of the prep was excellent. ? Findings: ? The digital rectal exam was normal. The rectum, sigmoid colon, ? descending colon, splenic flexure, transverse colon, hepatic flexure, ? ascending colon, cecum and ileocecal valve were normal. The retroflexed ? view of the anal verge was normal and showed no anal or rectal ? abnormalities. ? Impression: ? - The rectum, sigmoid colon, descending colon, splenic ?flexure, transverse colon, hepatic flexure, ascending colon, ?cecum and ileocecal valve are normal. Recommendation: - Discharge patient to home (ambulatory). ?- Collect hemoccults on three spontaneously passed stools ?annually. ?- Flexible Sigmoidoscopy in 3 years. ?- Return to primary care provider PRN. ? CPT Code(s): ?59923, Colonoscopy, flexible, proximal to splenic flexure; ?diagnostic, with or without collection of specimen(s) by ?brushing or washing, with or without colon decompression ?(separate procedure) ICD Code(s): ?V76.51, Special Screening For Malignant Neoplasms, Colon The codes documented in this report are preliminary and upon material coordinator review may be revised to meet current compliance requirements. Kenya Kendrick M.D Juni Kendrick MD Signed Date: 10/12/2005 10:00 AM Number of Addenda: 0 I was physically present for the entire viewing portion of the exam. Note generated on 10/12/2005 9:21 AM RADIOLOGY RESULTS COLONOSCOPY RADIOLOG Y RESULTS 10/12/2005 9:20 AM CDT Juni Kendrick MD PROCEDURES RADIOLOGY RESULTS from Last 3 Months or Most Recently Relevant to Health Maintenance Care Teams Pet Training Instructor Relationship Specialty Start Date End Date [facility], [address] [address] PCP - General 02/09/15
--- OUTSIDE RECORDS SUMMARY | 2024-03-04 11:40 | XMS_ITS | Referral Summary ---
Author Organization [place] Address [address] [place] [address] Care Team Providers Care Police Commanding Officer Name Role Phone Clinic, [facility] Primary Care Provide r Allergies Active [...] Comments Blood Pressure 173/97 08/17/2023 11:24 PM DRYWALLER Pulse 70 08/17/2023 11:24 PM DRYWALLER Temperature 36.7 ??C (98 ??F) 08/17/2023 11:24 PM DRYWALLER Respiratory Rate 18 08/17/2023 11:24 PM DRYWALLER Oxygen Saturation 99% 08/17/2023 11:24 PM DRYWALLER Inhaled Oxygen Concentration - - Weight 57.2 kg (126 lb) 06/28/2015 8:00 PM DRYWALLER Height 165.1 cm (5' 5) 06/28/2015 8:00 PM DRYWALLER Body Mass Index 20.97 06/28/2015 8:00 PM DRYWALLER Plan of Treatment Not on file Procedures Procedure Name Priority Date/Time Associated Diagnosis Comments COLONOSCOPY Routine 10/12/2005 9:20 AM CDT from Last 3 Months or Most Recently Relevant to Health Maintenance Results * COLONOSCOPY (10/12/2005 9:20 AM CDT) COLONOSCOPY Endoscopy Patient Name: Lenora Suggs ?Gender: F ? Procedure Date: 10/12/2005 9:20 AM ?N: [id number] ? Date of : 1950 ? Age: 55 ? Admit Type: Outpatient ? Attending MD: Juni Kendrick ? Procedure: ?Colonoscopy Indications: ?Avg risk screening for malignant neoplasm in the colon Providers: ?Juni Kendrick MD Referring MD: ?? Santy Clarke MD Medicines: ?Fentanyl 100 [...] and oxygen saturations were monitored ?continuously. The [facility]-Q180AL #[id number] was introduced through ?the anus and advanced [...] primary care provider PRN. ? CPT Code(s): ?49223, Colonoscopy, flexible, proximal to splenic flexure; ?diagnostic, with or without collection of specimen(s) by ?brushing or washing, with or without colon decompression ?(separate procedure) ICD Code(s): ?V76.51, Special Screening For Malignant Neoplasms, Colon The codes documented in this report are preliminary and upon procedure analyst review may be revised to meet current [...] Recently Relevant to Health Maintenance Care Teams Police Commanding Officer Relationship Specialty Start Date End Date Clinic, [address] [id number] PCP - General 02/09/15
--- OUTSIDE RECORDS SUMMARY | 2024-03-04 11:41 | XMS_ITS | Clinical Summary ---
Author Organization [facility] Address [address] [address] Care Team Providers Care Special Forces Senior Sergeant Name Role Phone Needs Pcp, Assignment Primary Care Provider [phone] Source Comments You are receiving this document as you are listed as the primary care provider,follow-up provider, or the patient has been referred to you for consultation.This is in compliance with the Medicare and[facility] Health Systemcaid EHR Incentive Program,which states Providers who transition their patient to another setting of careor provider of care or refers their patient to another provider of care shouldprovide summary care record for each transition of care or referral. [facility] Allergies Active Allergy Reactions Criticality Noted Date Comments Sulfamethoxazole-Trimethoprim 2014 Medications Medication Sig Dispensed Refills Start Date End Date Status levothyroxine (SYNTHROID) 50 MCG tablet Take 50 mcg by mouth daily (every 24 hours). 02/03/2015 Active beclomethasone (QVAR) 40 MCG/ACT inhaler Inhale 2 times daily. Rinse mouth/gargle after use. 02/03/2015 Active ALBUterol sulfate HFA 108 (90 BASE) MCG/ACT inhaler Inhale 2 puffs every 6 hours as needed for Wheezing. 02/03/2015 Active Social History Tobacco Use Types Packs/Day Years Used Date Smoking Tobacco: Never Smokeless Tobacco: Never Sex and Gender Information Value Date Recorded Sex Assigned at Not on file Gender Identity Not on file Sexual Orientation Not on file Last Filed Vital Signs Vital Sign Reading Time Taken Comments Blood Pressure 112/62 06/09/2019 2:56 PM SUPERVISOR SEWER MAINTENANCE Pulse 73 06/09/2019 2:56 PM SUPERVISOR SEWER MAINTENANCE Temperature 36.8 ??C (98.3 ??F) 06/09/2019 2:56 PM CS T Respiratory Rate 20 06/09/2019 2:56 PM SUPERVISOR SEWER MAINTENANCE Oxygen Saturation 100% 06/09/2019 2:56 PM SUPERVISOR SEWER MAINTENANCE Inhaled Oxygen Concentration - - Weight - - Height - - Body Mass Index - - Plan of Treatment Health Maintenance Due Date Last Done Comments Colon Cancer Screening Plan Due 1950 Hep C Screening (Preventive Services) 1950 Mammogram 1950 Adult Preventive Visit 1967 DTaP/Tdap/Td (1 - Tdap) 1968 Cholesterol 1994 Zoster/Shingles (1 of 2) 1999 Pneumococcal 65+ Yrs (1 - PCV) 2014 COVID-19 Vaccine ( - 2023-2 5 season) 2024 Influenza (#1) 2024 RSV (1 - 1-dose 75+ series) 2024 HepA Aged Out No longer eligi ble based on patient's age to complete this topic HepB Aged Out No longer eligi ble based on patient's age to complete this topic Hib Aged Out No longer eligi ble based on patient's age to complete this topic IPV (Polio) Aged Out No longer eligi ble based on patient's age to complete this topic MCV4 Aged Out No longer eligi ble based on patient's age to complete this topic Care Teams Special Forces Senior Sergeant Relationship Specialty Start Date End Date Needs Pcp, [place] [address] PCP - General 02/03/15
--- OUTSIDE RECORDS SUMMARY | 2024-03-04 11:41 | XMS_ITS | Clinical Summary ---
Author Organization [facility] Address [place], [place] [address] Care Team Providers Care Information Architect Name Role Phone Abi Mccracken Primary Care Provider Allergies Active Allergy Reactions Criticality Noted Date Comments Sulfamethoxazole-Trimethoprim Rash 2014 Happened around 1980 Medications Medication Sig Dispensed Refills Start Date End Date Status albuterol HFA (PRO-AIR; VENTOLIN; PROVENTIL) 90 mcg/actuation inhaler Inhale 1-2 Puffs by mouth every 4 hours if needed. 11/14/2020 Active Qvar RediHaler 80 mcg/actuation HFAb HFA inhaler Inhale 1 Puff by mouth 2 times daily. 09/21/2020 Active fluticasone (50 mcg per actuation) nasal solution (FLONASE) 01/17/2021 Active cefdinir (OMNICEF) 300 mg capsule 01/17/2021 Active Synthroid 50 mcg tabletIndications:Conge nital hypothyroidism without goiter TAKE 1 TABLET(50 MCG) BY MOUTH EVERY DAY 90 Tablet 02/17/2022 Active Active Problems Problem Noted Date Diagnosed Date Congenital hypothyroidism without goiter Immunizations Name Administration Dates Next Due Influenza, IIV3 (Age >=3 years) 04/04/2006 Pneumococcal Poly,23-Valent (Pneumovax) 11/05/19 09 Tdap 10/04/2007 Family History Medical History Relation [...] Date Smoking Tobacco: Never Smokeless Tobacco: Never Alcohol Use Standard Drinks/Week Comments Not Currently 0 (1 standard drink = 0.6 oz pur e alcohol) rarely PHQ-2 Answer Date Recorded PHQ-2 TOTAL SCORE 2 01/18/2021 Social Connections Answer Date Recorded Frequency of Communication with Friends and Fami ly Not on file 06/12/2023 Financial Resource Strain Answer Date R ecorded Difficulty of Paying Living Expenses Not on file 06/10/2021 Difficulty of Paying Living Expenses Not on file 06/10/2021 Sex and Gender Information Value Date Recorded Sex Assigned at Not on file Gender Identity Not on file Sexual Orientation Not on file Obstetrics History Para Term AB IAB SAB Ectopic Multiple Livin g Live Births 4 3 Date Outcome GA Total Labor Labor/2nd/3rd Weight Sex Type Anes PTL Coleen A1 A5 Name Clin Para Para Para Comments Menarche occurred at [...] Health Maintenance Due Date Last Done Comments Zoster (shingles) series for age 50+ (1 of 2) 1999 Pneumococcal series for age 65+ (2 of 2 - PCV) 2014 11/04/2008 Mammogram for age 45-75 07/11/2017 07/11/2016, 11/09 Tetanus booster 10/03/2017 10/04/2007 BMI (ht and wt on same day) for age 18+ 01/18/2022 01/18/2021 Depression screening for age 12+ 01/18/2022 01/19/20 21 Medicare Wellness for age 65+ 01/19/2022 01/18/2021 COVID-19 vaccine series ( season) 2024 Influenza for age 65+ 02/09/2024 04/04/2006 Fecal testing sDNA-FIT ([place] guard) for age 45-75 03/21/2024 03/21/2021 Lipids for age 45-75 01/18/2026 01/18/2021 Tdap Completed 10/04/2007 Fecal testing non-DNA (FIT,FOBT,iFOBT) for age 45-75 Discontinued 03/10/2018 ([facility]) DEXA/DXA scan for age 65+ Completed 01/18/2021 Hepatitis C screening for ag e 18-79 Completed 01/18/2021 Procedures Procedure Name Priority Date/Time Associated Diagnosis Comments SCAN-FECAL TEST DNA (COLOGUARD) 03/21/2021 12:00 AM CDT XR DXA BONE DENSITY 2 SITES AXIAL Routine 01/18/2021 10:18 AM CDT Postmenopausal ANTI HCV Routine 01/18/2021 9:31 AM CDT Need for hepatitis C screening test LIPID PANEL W REFLEX MEASURED LDL Routine 01/18/2021 9:31 AM CDT Screening for lipid disorders XR MAMMO BILAT SCREENING Routine 07/11/2016 1:33 PM HYDRAULIC PILE HAMMER OPERATOR Screening mammogram, encounter for from Last 3 Months or Most Recently Relevant to Health Maintenance Results * SCAN-FECAL TEST DNA (COLOGUARD) (03/21/2021 12:00 AM CDT) Scanner OTHER * XR DXA BONE DENSITY 2 SITES AXIAL [79419.1] (01/18/2021 10:18 AM CDT) Anatomical Region Laterality Modality Spine, HIPS, HIPL, HIPR Computed Radiography 01/18/2021 10:1 8 AM CDT Narrative 01/18/2021 10:28 AM CDT For Patients: As a result of the Century Cures Act, medical imaging exams and procedure reports are released immediately into your electronic medical record. You may view this report before your referring provider. If you have questions, please contact your health care provider. EXAM: XR DXA BONE DENSITY 2 SITES AXIAL LOCATION: [facility] DATE/TIME: 01/18/2021 10:18 AM INDICATION: I. other (screening-at minimum one option in 2-5 must be selected) - z13.820 Postmenopausal COMPARISON: None. TECHNIQUE: Dual-energy x-ray absorptiometry performed with routine technique. FINDINGS: Lumbar Spine: L1-L4: BMD: 0.926 g/cm2. T-score: -2.1. Z-score: 0.0 RIGHT Hip Total: BMD: 0.753 g/cm2. T-score: -2.0. Z-score: -0.2 RIGHT Hip Femoral neck: BMD: 0.770 g/cm2. T-score: -1.9. Z-score: 0.1 LEFT Hip Total: 0.739 g/cm2. T-score: -2.1. Z-score: -0.3 LEFT Hip Femoral neck: 0.769 g/cm2. T-score: -1.9. Z-score: 0.1 WHO Criteria: Normal: T score at or above -1 SD Osteopenia: T score between -1 and -2.5 SD Osteoporosis: T score at or below -2.5 SD FRAX Results: 10 year probability of major osteoporotic fracture is 10.2%, and of hip fracture is 2.3%, based on left femoral neck BMD. RECOMMENDATIONS: Consider treatment if major osteoporotic fracture score is greater than or equal to 20%. Consider treatment if hip fracture score is greater than or equal to 3%. IMPRESSION: Low bone density (OSTEOPENIA). T score meets the World Health Organization (WHO) criteria for low bone density (osteopenia) at one or more measured sites. The risk of osteoporotic fracture increased approximately two-fold for each SD decrease in T-score. Procedure Note Josafat Salcido MD - 01/18/2021 For Patients: As a result of the Cures Act, medical imagingexams and procedure reports are released immediately into your electronicmedical record. You may view this report before your referring provider.If you have questions, please contact your health care provider. EXAM: XR DXA BONE DENSITY 2 SITES AXIAL LOCATION: [facility] DATE/TIME: 01/18/2021 10:18 AM INDICATION: I. other (screening-at minimum one option in 2-5 must beselected) - z13.820 Postmenopausal COMPARISON: None. TECHNIQUE: Dual-energy x-ray absorptiometry performed with routinetechnique. FINDINGS: Lumbar Spine: L1-L4: BMD: 0.926 g/cm2. T-score: -2.1. Z-score: 0.0 RIGHT Hip Total: BMD: 0.753 g/cm2. T-score: -2.0. Z-score: -0.2 RIGHT Hip Femoral neck: BMD: 0.770 g/cm2. T-score: -1.9. Z-score: 0.1 LEFT Hip Total: 0.739 g/cm2. T-score: -2.1. Z-score: -0.3 LEFT Hip Femoral neck: 0.769 g/cm2. T-score: -1.9. Z-score: 0.1 WHO Criteria: Normal: T score at or above -1 SD Osteopenia: T score between -1 and -2.5 SD Osteoporosis: T score at or below -2.5 SD FRAX Results: 10 year probability of major osteoporotic fracture is 10.2%,and of hip fracture is 2.3%, based on left femoral neck BMD. RECOMMENDATIONS: Consider treatment if major osteoporotic fracture score is greater than orequal to 20%. Consider treatment if hip fracture score is greater than orequal to 3%. IMPRESSION: Low bone density (OSTEOPENIA). T score meets the World HealthOrganization (WHO) criteria for low bone density (osteopenia) at one ormore measured sites. The risk of osteoporotic fracture increasedapproximately two-fold for each SD decrease in T-score. Abi ROSE DEXA * (ABNORMAL) LIPID PANEL W REFLEX MEASURED LDL [[id number]] (01/18/2021 9:31 AM CDT) [facility] CHOLESTEROL,TOTAL 214(H) 100 - 199 mg/dL 01/18/2021 2:18 PM CDT [facility] TRIGLYCERIDES 58 <150 mg/dL 01/18/2021 2:18 PM CDT [facility] HDL CHOLESTEROL 76 >40 mg/dL 2:18 PM CDT [facility] NON-HDL CHOLESTEROL 138 <145 mg/dl 01/18/2021 2:18 PM CDT [facility] CHOL/HDL RATIO 2.82 <4.50 01/18/2021 2:18 PM CDT [facility] LDL CHOLESTEROL 126 <=130 mg/dL 01/18/2021 2:18 PM CDT [facility] VLDL CHOLESTEROL 12 mg/dL 01/19/20 2:18 PM CDT [facility] PROVIDER ORDERED STATUS RANDOM 01/18/2021 2:18 PM CDT [facility] Blood BLOOD SPECIMEN / Unknown Butterfly / Unknown 01/18/2021 9:31 AM CDT 01/18/2021 9:35 AM CDT Abi ROSE CHEMISTRY [facility] [address] [place] [address], * ANTI HCV (01/18/2021 9:31 AM CDT) HEPATITIS C ANTIBODY Non-React benjamin Non-React benjamin 01/18/2021 2:34 PM CDT [facility] Comment:Antibodies to HCV no t detected; does not exclude the possibility of exposure to HCV. Blood BLOOD SPECIMEN / Unknown Butterfly / Unknown 01/18/2021 9:31 AM CDT 01/18/2021 9:35 AM CDT Abi ROSE [facility]S [facility] [address] [place] [address], [place] * XR MAMMO BILAT SCREENING (07/11/2016 1:33 PM HYDRAULIC PILE HAMMER OPERATOR) Anatomical Region Laterality Modality BREASTS, Breast Left, Breast Right Bilateral Mammography Impressions 07/12/2016 8:50 AM HYDRAULIC PILE HAMMER OPERATOR ??There is no radiographic evidence for malignancy. ??Recommend annual mammograms. A lay language report of this examination will be provided to the patient. MAMMOGRAM ASSESSMENT: ??ACR 2 Benign Narrative 07/12/2016 8:50 AM HYDRAULIC PILE HAMMER OPERATOR XR MAMMO BILAT SCREENING [[id number]] CLINICAL HISTORY: ??This is an asymptomatic 66 y.o. patient. INDICATION FOR EXAM: Mammogram Screening. TECHNIQUE: CC & MLO views were obtained. ??This digital study was evaluated with the assistance of Computer-Aided Detection. COMPARISON FILMS: Yes 11/09/08 FINDINGS: ??Mammographically, the breast tissue has scattered fibroglandular densities. ??No suspicious masses or microcalcifications. ?? Benign appearing calcifications within both breasts. Shekhar Hernández MD MAMMO from Last 3 Months or Most Recently Relevant to Health Maintenance Care Teams Information Architect Relationship Specialty Start Date End Date Abi Mccracken PA PCP - General Physician Powerhouse Mechanic Helper 01/18/21
== END 2024-03-04 11:38 | disposition home or self-care (01) ==
PROVIDERS: PCP Physician Assistant Medical; Visit Provider Physician Assistant Medical
DX: Z00.00 Encounter for general adult medical examination without abnormal findings (principal); E55.9 Vitamin D deficiency, unspecified; R79.89 Other specified abnormal findings of blood chemistry; E06.3 Autoimmune thyroiditis; R53.83 Other fatigue; R82.2 Biliuria
CPT/HCPCS: 80053; 80061; 82306; 83735; 84443

== ENCOUNTER 2024-03-31 13:11 | Outpatient (CLI) | payer MEDICARE, SELFPAY ==
--- OUTSIDE RECORDS SUMMARY | 2024-03-31 13:16 | XMS_ITS | Clinical Summary ---
Author Organization [facility] Address [address] [place] [address] Care Team Providers Care Laboratory Director Name Role Phone Clinic, [facility] Primary Care Provide r Allergies Active [...] Comments Blood Pressure 173/97 08/17/2023 11:24 PM BANK GUARD Pulse 70 08/17/2023 11:24 PM BANK GUARD Temperature 36.7 ??C (98 ??F) 08/17/2023 11:24 PM BANK GUARD Respiratory Rate 18 08/17/2023 11:24 PM BANK GUARD Oxygen Saturation 99% 08/17/2023 11:24 PM BANK GUARD Inhaled Oxygen Concentration - - Weight 57.2 kg (126 lb) 06/28/2015 8:00 PM BANK GUARD Height 165.1 cm (5' 5) 06/28/2015 8:00 PM BANK GUARD Body Mass Index 20.97 06/28/2015 8:00 PM BANK GUARD Plan of Treatment Health Maintenance Due Date [...] and oxygen saturations were monitored ?continuously. The [facility]-Q180AL #[id number] was introduced through ?the anus and advanced [...] primary care provider PRN. ? CPT Code(s): ?84446, Colonoscopy, flexible, proximal to splenic flexure; ?diagnostic, with or without collection of specimen(s) by ?brushing or washing, with or without colon decompression ?(separate procedure) ICD Code(s): ?V76.51, Special Screening For Malignant Neoplasms, Colon The codes documented in this report are preliminary and upon monitoring coordinator review may be revised to meet [...] Recently Relevant to Health Maintenance Care Teams Laboratory Director Relationship Specialty Start Date End Date [facility], [address] [address] PCP - General 02/09/15
--- OUTSIDE RECORDS SUMMARY | 2024-03-31 13:16 | XMS_ITS | Referral Summary ---
Author Organization [place] Address [address] [place] [address] Care Team Providers Care Division Officer Weapons Department Name Role Phone Clinic, [facility] Primary Care Provide r Allergies Active Allergy [...] Comments Blood Pressure 173/97 08/17/2023 11:24 PM HAND PACKER Pulse 70 08/17/2023 11:24 PM HAND PACKER Temperature 36.7 ??C (98 ??F) 08/17/2023 11:24 PM HAND PACKER Respiratory Rate 18 08/17/2023 11:24 PM HAND PACKER Oxygen Saturation 99% 08/17/2023 11:24 PM HAND PACKER Inhaled Oxygen Concentration - - Weight 57.2 kg (126 lb) 06/28/2015 8:00 PM HAND PACKER Height 165.1 cm (5' 5) 06/28/2015 8:00 PM HAND PACKER Body Mass Index 20.97 06/28/2015 8:00 PM HAND PACKER Plan of Treatment Not on file Procedures Procedure Name Priority Date/Time Associated Diagnosis Comments COLONOSCOPY Routine 10/12/2005 9:20 AM CDT from Last 3 Months or Most Recently Relevant to Health Maintenance Results * COLONOSCOPY (10/12/2005 9:20 AM CDT) COLONOSCOPY Endoscopy Patient Name: Lenora Suggs ?Gender: F ? Procedure Date: 10/12/2005 9:20 AM ?N: [id number] ? Date of : 1950 ? Age: [...] and oxygen saturations were monitored ?continuously. The [id number] #[id number] was introduced through ?the anus and advanced [...] primary care provider PRN. ? CPT Code(s): ?58783, Colonoscopy, flexible, proximal to splenic flexure; ?diagnostic, with or without collection of specimen(s) by ?brushing or washing, with or without colon decompression ?(separate procedure) ICD Code(s): ?V76.51, Special Screening For Malignant Neoplasms, Colon The codes documented in this report are preliminary and upon orthopedic coder review may be revised to meet current [...] Recently Relevant to Health Maintenance Care Teams Division Officer Weapons Department Relationship Specialty Start Date End Date Clinic, [address] [id number] PCP - General 02/09/15
--- OUTSIDE RECORDS SUMMARY | 2024-03-31 13:16 | XMS_ITS | Clinical Summary ---
Author Organization [facility] Address [address], [place] [address] Care Team Providers Care Processing Mgr Name Role Phone Needs Pcp, Assignment Primary Care Provider [phone] Source Comments You are receiving this document as you are listed as the primary care provider,follow-up provider, or the patient has been referred to you for consultation.This is in compliance with the Medicare and[facility] Hospital[facility] EHR Incentive Program,which states Providers who transition their patient to another setting of careor provider of care or refers their patient to another provider of care shouldprovide summary care record for each transition of care or referral. Spokeable Allergies Active Allergy Reactions Criticality Noted Date [...] Comments Blood Pressure 112/62 06/09/2019 2:56 PM HEALTHCARE MARKETER Pulse 73 06/09/2019 2:56 PM HEALTHCARE MARKETER Temperature 36.8 ??C (98.3 ??F) 06/09/2019 2:56 PM CS T Respiratory Rate 20 06/09/2019 2:56 PM HEALTHCARE MARKETER Oxygen Saturation 100% 06/09/2019 2:56 PM HEALTHCARE MARKETER Inhaled Oxygen Concentration - - Weight - [...] patient's age to complete this topic RSV Aged Out No longer eligi ble based on patient's age to complete this topic MCV4 Aged Out No longer eligi ble based on patient's age to complete this topic Care Teams Processing Mgr Relationship Specialty Start Date End Date Needs Pcp, [place] [address] PCP - General 02/03/15
--- OUTSIDE RECORDS SUMMARY | 2024-03-31 13:17 | XMS_ITS | Clinical Summary ---
Author Organization [employer] [facility] Address [place], [place] [address] Care Team Providers Care General Accountant Name Role Phone Abi Mccracken Primary Care [...] age 65+ 02/09/2024 04/04/2006 Fecal testing sDNA-FIT ([place] guard) for age 45-75 03/21/2024 03/21/2021 Lipids for age 45-75 01/18/2026 01/18/2021 Tdap Completed 10/04/2007 Fecal testing non-DNA (FIT,FOBT,iFOBT) for age 45-75 Discontinued 03/10/2018 (Completed o idside of [facility]) DEXA/DXA scan for age 65+ Completed 01/18/2021 [...] MAMMO BILAT SCREENING Routine 07/11/2016 1:33 PM MARKET RESEARCH COORDINATOR Screening mammogram, encounter for from Last 3 Months or Most Recently Relevant to Health Maintenance Results * SCAN-FECAL TEST DNA (COLOGUARD) (03/21/2021 12:00 AM CDT) Scanner OTHER * XR DXA BONE DENSITY 2 SITES AXIAL [83193.1] (01/18/2021 10:18 AM CDT) Anatomical Region Laterality [...] DXA BONE DENSITY 2 SITES AXIAL LOCATION: [facility] DATE/TIME: 01/18/2021 10:18 AM INDICATION: I. [...] BONE DENSITY 2 SITES AXIAL LOCATION: [facility] [place] DATE/TIME: 01/18/2021 10:18 AM INDICATION: I. other [...] (ABNORMAL) LIPID PANEL W REFLEX MEASURED LDL [[id number]] (01/18/2021 9:31 AM CDT) [facility] CHOLESTEROL,TOTAL 214(H) 100 - 199 mg/dL 01/18/2021 2:18 PM CDT [facility] TRIGLYCERIDES 58 <150 mg/dL 01/18/2021 2:18 PM CDT [facility] HDL CHOLESTEROL 76 >40 mg/dL 2:18 PM CDT [facility] NON-HDL CHOLESTEROL 138 <145 mg/dl 01/18/2021 2:18 PM CDT [facility] CHOL/HDL RATIO 2.82 <4.50 01/18/2021 2:18 PM CDT [facility] LDL CHOLESTEROL 126 <=130 mg/dL 01/18/2021 2:18 PM CDT [facility] VLDL CHOLESTEROL 12 mg/dL 01/19/20 2:18 PM CDT [facility] PROVIDER ORDERED STATUS RANDOM 01/18/2021 2:18 PM CDT [facility] Blood BLOOD SPECIMEN / Unknown Butterfly / Unknown 01/18/2021 9:31 AM CDT 01/18/2021 9:35 AM CDT Abi ROSE CHEMISTRY [facility] [address] [place] [address], * ANTI HCV (01/18/2021 9:31 AM CDT) HEPATITIS C ANTIBODY Non-React benjamin Non-React benjamin 01/18/2021 2:34 PM CDT [facility] Comment:Antibodies to HCV no t detected; does not exclude the possibility of exposure to HCV. Blood BLOOD SPECIMEN / Unknown Butterfly / Unknown 01/18/2021 9:31 AM CDT 01/18/2021 9:35 AM CDT Abi ROSE [facility] [address] [place] [address], [place] * XR MAMMO BILAT SCREENING (07/11/2016 1:33 PM MARKET RESEARCH COORDINATOR) Anatomical Region Laterality Modality BREASTS, Breast Left, Breast Right Bilateral Mammography Impressions 07/12/2016 8:50 AM MARKET RESEARCH COORDINATOR ??There is no radiographic evidence for malignancy. ??Recommend annual mammograms. A lay language report of this examination will be provided to the patient. MAMMOGRAM ASSESSMENT: ??ACR 2 Benign Narrative 07/12/2016 8:50 AM MARKET RESEARCH COORDINATOR XR MAMMO BILAT SCREENING [[id number]] CLINICAL HISTORY: ??This is an asymptomatic 66 [...] Recently Relevant to Health Maintenance Care Teams General Accountant Relationship Specialty Start Date End Date Abi Mccracken PA PCP - General Physician Lay Out Former 01/18/21
--- NOTE | 2024-03-31 13:20 | CRLHL7_ITS ---
For Patients: As a result of the Century Cures Act, medical imaging exams and procedure reports are released immediately into your electronic medical record. You may view this report before your referring provider. If you have questions, please contact your health care provider. BILATERAL SCREENING MAMMOGRAM WITH COMPUTER-AIDED DETECTION AND TOMOSYNTHESIS TECHNIQUE: CC and MLO views were obtained. These mammographic images have been obtained using full-field digital technique. These mammographic images were interpreted with the benefit of computer-aided detection. Breast Tomosynthesis was used in this interpretation. COMPARISON FILM: 08/08/22, 07/11/16, 11/09/08. FINDINGS: There are scattered areas of fibroglandular density IMPRESSION: There is no radiographic evidence for malignancy. ASSESSMENT: BI-RADS Category 2: Benign RECOMMENDATION: Routine screening mammogram in 1 year. A lay language report of this examination will be provided to the patient. Guero Santos M.D. Diagnostic Radiologist [email or web address] DOMINIK/Dictated by: Guero Santos MD @ 04/03/2024 8:29:00 AM (Electronically Signed)
== END 2024-03-31 13:12 | disposition home or self-care (01) ==
LOC: MAMMO 13:12
PROVIDERS: PCP Physician Assistant Medical; Visit Provider Physician Assistant Medical
DX: Z12.31 Encounter for screening mammogram for malignant neoplasm of breast (principal)
CPT/HCPCS: 77063; 77067

== ENCOUNTER 2024-07-08 10:26 | Outpatient (CLI) | payer MEDICARE, SELFPAY | END 2024-07-08 10:27 | disposition home or self-care (01) | PROVIDERS: PCP Physician Assistant Medical; Visit Provider Physician Assistant Medical | DX: E06.3 Autoimmune thyroiditis (principal); E55.9 Vitamin D deficiency, unspecified | CPT/HCPCS: 82306; 84443 ==

== ENCOUNTER 2024-07-21 10:46 | Outpatient (CLI) | payer MEDICARE, SELFPAY ==
--- NOTE | 2024-07-21 10:45 | CRLHL7_ITS ---
For Patients: As a result of the Cures Act, medical imaging exams and procedure reports are released immediately into your electronic medical record. You may view this report before your referring provider. If you have questions, please contact your health care provider. INDICATION: re-evaluate thyroid nodules COMPARISON: 10/13/2018 TECHNIQUE: Chavarria scale and color Doppler images were acquired of the thyroid gland. FINDINGS: Isthmus measures 1.7 millimeters. Solid hypoechoic nodule right thyroid lobe measures 2.2 x 0.9 x 1.3 cm, previously measuring 2.4 x 1.2 x 1.4 cm. TR 4. Hypoechoic nodule left thyroid lobe measures 8 x 5 x 9 millimeters, TR 4, previously measuring 5 millimeters. Hypoechoic nodule right thyroid lobe measures 3 by 1 x 2 millimeters, previously measuring 4 millimeters. Thyroid echotexture is heterogeneous. The right lobe measures 5.4 x 1.5 x 1.5 cm and the left lobe measures 5.0 x 1.0 x 1.5 cm in size. The color Doppler images demonstrate increased vascularity. IMPRESSION: Similar previously biopsied thyroid nodules without significant change. Dictated by Guero Santos MD @ 07/21/2024 11:43:23 AM (Electronically Signed)
== END 2024-07-21 10:47 | disposition home or self-care (01) ==
LOC: US 10:46
PROVIDERS: PCP Physician Assistant Medical; Visit Provider Physician Assistant Medical
DX: E04.1 Nontoxic single thyroid nodule (principal); E06.3 Autoimmune thyroiditis
CPT/HCPCS: 76536

== ENCOUNTER 2024-08-02 15:06 | Emergency (ER) | payer MEDICARE, SELFPAY ==
--- OUTSIDE RECORDS SUMMARY | 2024-08-02 15:08 | XMS_ITS | Clinical Summary ---
Author Organization [facility] Address [address] [place] [address] Care Team Providers Care Nitrate Operator Name Role Phone Needs Pcp, Assignment Primary Care Provider [phone] Source Comments You are receiving this document as you are listed as the primary care provider,follow-up provider, or the patient has been referred to you for consultation.This is in compliance with the Medicare and[facility] Hospitalcaid EHR Incentive Program,which states Providers who transition their patient to another setting of careor provider of care or refers their patient to another provider of care shouldprovide summary care record for each transition of care or referral. [employer] Allergies Active Allergy Reactions Criticality Noted Date Comments Sulfamethoxazole-Trimethoprim 2014 Medications levothyroxine (SYNTHROID) 50 MCG tablet Take 50 mcg by mouth daily (every 24 hours). 02/03/2015 Active beclomethasone (QVAR) 40 MCG/ACT inhaler Inhale 2 times daily. Rinse mouth/gargl e after use. 02/03/2015 Active ALBUterol sulfate HFA 108 (90 BASE) MCG/ACT inhaler Inhale 2 puffs every 6 hours as needed for Wheezing. 02/03/2015 Active Social History Tobacco Use Types Packs/Day Years Used Date Smoking Tobacco: Never Smokeless Tobacco: Never Comments No Sex and Gender Information Value Date Recorded Sex Assigned at Not on file Legal Sex Female 3:43 AM CDT Gender Identity Not on file Sexual Orientation Not on file Last Filed Vital Signs Vital Sign Reading Time Taken Comments Blood Pressure 112/62 06/09/2019 2:56 PM SHAKER OUT Pulse 73 06/09/2019 2:56 PM SHAKER OUT Temperature 36.8 C (98.3 F) 06/09/2019 2:56 PM SHAKER OUT Respiratory Rate 20 06/09/2019 2:56 PM SHAKER OUT Oxygen Saturation 100% 06/09/2019 2:56 PM SHAKER OUT Inhaled Oxygen Concentration - - Weight - - Height - - Body Mass Index - - Plan of Treatment Health Maintenance Due Date Last Done Comments Colon Cancer Screening Plan Due 1950 Hep C Screening (Preventive Services) 1950 Mammogram 1950 Adult Preventive Visit 1967 DTaP/Tdap/Td (1 - Tdap) 1968 Pneumococcal 50+ Yrs (1 of 1 - PCV) 1999 Zoster/Shingles (1 of 2) 1999 COVID-19 Vaccine ( - 2023-2 5 season) [...] on patient's age to complete this topic Meningococcal B Aged Out No longer el igible based on patient's age to complete this topic Care Teams Nitrate Operator Relationship Specialty Start Date End Date Needs Pcp, [place] [address] PCP - General 02/03/15
--- OUTSIDE RECORDS SUMMARY | 2024-08-02 15:08 | XMS_ITS | Clinical Summary ---
Author Organization [employer] [facility] Address [address] [place] [address] Care Team Providers Care Prison Classification Counselor Name Role Phone Abi Mccracken Primary Care Provider Allergies Active Allergy Reactions Criticality Noted Date Comments Sulfamethoxazole-Trimethoprim Rash 2014 Happened around 1980 Medications albuterol HFA (PRO-AIR; VENTOLIN; PROVENTIL) 90 mcg/actuation inhaler Inhale 1-2 Puffs by mouth every 4 hours if needed. 1 Active Qvar RediHaler 80 mcg/actuation HFAb HFA inhaler Inhale 1 Puff by mouth 2 times daily. 1 Active fluticasone (50 mcg per actuation) nasal solution (FLONASE) 1 Active cefdinir (OMNICEF) 300 mg capsule 1 Active Synthroid 50 mcg tabletIndications:C ongenital hypothyroidism without goiter TAKE 1 TABLET(50 MCG) BY MOUTH EVERY DAY 90 Tablet 2 Active Active Problems Problem Noted Date Diagnosed [...] Paying Living Expenses Not on file 06/10/2021 Comments No Sex and Gender Information Value Date Recorded Sex Assigned at Not on file Legal Sex Female 7:21 AM PLATE GLASS INSTALLER Gender Identity Not on file Sexual Orientation [...] of 2) 1999 Pneumococcal series for age 50+ (2 of 2 - PCV) 11/04/2009 11/04/2008 Tetanus booster 10/03/2017 10/04/2007 BMI (ht and wt on same day) for age 18+ 01/18/2022 01/18/2021 Depression screening for age 12+ 01/18/2022 01/19/20 21 Medicare Wellness for age 65+ 01/19/2022 01/18/2021 COVID-19 vaccine series ( - 2023- season) 2024 Influenza for age 65+ 02/09/2024 04/04/2006 RSV vaccine for adults or pr egnancy (1 - 1-dose 75+ series) 2024 Lipids for age 45-75 01/18/2026 01/18/2021 Fecal testing sDNA-FIT ([place] guard) for age 45-75 03/31/2027 03/31/2024, 03/21/2021, 03/21/2021 Tdap Completed 10/04/2007 DEXA/DXA scan for age 65+ Completed 01/18/2021 Hepatitis C screening for age 18-79 Completed 01/18 Procedures Procedure Name Priority Date/Time Associated Diagnosis Comments SCAN-FECAL TEST DNA (COLOGUARD) 03/21/2021 12:00 AM CDT XR DXA BONE DENSITY 2 SITES AXIAL Routine 01/18/2021 10:18 AM CDT Postmenopausal ANTI HCV Routine 01/18/2021 9:31 AM CDT Need for hepatitis C screening test LIPID PANEL W REFLEX MEASURED LDL Routine 01/18/2021 9:31 AM CDT Screening for lipid disorders from Last 3 Months or Most Recently Relevant to Health Maintenance Results * SCAN-FECAL TEST DNA (COLOGUARD) (03/21/2021 12:00 AM CDT) us Scanner OTHER Final Result * XR DXA BONE DENSITY 2 SITES AXIAL [[id number]] (01/18/2021 10:18 AM CDT) Anatomical Region Laterality Modality Spine, HIPS, HIPL, HIPR Computed Radiography 01/18/2021 10:1 8 AM CDT Narrative 01/18/2021 10:28 AM CDT For Patients: As a result of the Cures Act, medical imaging exams and procedure reports are released immediately into your electronic medical record. You may view this report before your referring provider. If you have questions, please contact your health care provider. EXAM: XR DXA BONE DENSITY 2 SITES AXIAL LOCATION: [facility] [place] DATE/TIME: 01/18/2021 10:18 AM INDICATION: I. other [...] For Patients: As a result of the 21st Century Cures Act, medical imagingexams and procedure reports are released immediately into your electronicmedical record. You may view this report before your referring provider.If you have questions, please contact your health care provider. EXAM: XR DXA BONE DENSITY 2 SITES AXIAL LOCATION: [facility] DATE/TIME: 01/18/2021 10:18 AM INDICATION: I. other [...] SD decrease in T-score. Abi ROSE DEXA Final R esult * (ABNORMAL) LIPID PANEL W REFLEX MEASURED LDL [[id number]] (01/18/2021 9:31 AM CDT) [facility] CHOLESTEROL,TOTAL 214(H) 100 - 199 mg/dL 01/18/2021 2:18 PM CDT [facility] TRIGLYCERIDES 58 <150 mg/dL 01/18/2021 2:18 PM CDT [facility] HDL CHOLESTEROL 76 >40 mg/dL 2:18 PM CDT [facility] NON-HDL CHOLESTEROL 138 <145 mg/dl 01/18/2021 2:18 PM CDT [facility] CHOL/HDL RATIO 2.82 <4.50 01/18/2021 2:18 PM CDT [facility] LDL CHOLESTEROL 126 <=130 mg/dL 01/18/2021 2:18 PM CDT [facility] VLDL CHOLESTEROL 12 mg/dL 01/19/20 2:18 PM CDT [facility] PROVIDER ORDERED STATUS RANDOM 01/18/2021 2:18 PM CDT [facility] Blood BLOOD SPECIMEN / Unknown Butterfly / Unknown 01/18/2021 9:31 AM CDT 01/18/2021 9:35 AM CDT Abi ROSE CHEMISTRY Final R esult [facility] [address] [place] [address], * ANTI HCV (01/18/2021 9:31 AM CDT) HEPATITIS C ANTIBODY Non-React benjamin Non-React benjamin 01/18/2021 2:34 PM CDT [facility] Comment:Antibodies to HCV no t detected; does not exclude the possibility of exposure to HCV. Blood BLOOD SPECIMEN / Unknown Butterfly / Unknown 01/18/2021 9:31 AM CDT 01/18/2021 9:35 AM CDT Abi ROSE SEND OUTS Final R esult [facility] [address] [place] [address], from Last 3 Months or Most Recently Relevant to Health Maintenance Insurance [employer] MEDICARE ADVANTAGE MR Care Teams Prison Classification Counselor Relationship Specialty Start Date End Date Abi Mccracken PA PCP - General Physician Game Farm Supervisor 01/18/21
--- OUTSIDE RECORDS SUMMARY | 2024-08-02 15:09 | XMS_ITS | Clinical Summary ---
Author Organization [place] Address [address] [place] [address] Care Team Providers Care Advertising Sales Associate Name Role Phone Clinic, [facility] Primary Care Provide r Allergies Active Allergy Reactions Criticality Noted Date Comments Sulfamethoxazole-Trimethoprim 2014 Medications Levothyroxine Sodium (SYNTHROID PO) Activ e beclomethasone (QVAR) 40 MCG/ACT Inhaler Inhale 2 puffs into the lungs 2 times daily Active order for DMEIndications: Open wound Equipment being ordered: [employer] Order Primary Dressing Endoform Qty 10 Length of Need: 1 month Frequency of dressing change: daily 30 days 0 5 Active Social History Tobacco Use Types Packs/Day Years Used Date Smoking Tobacco: Never Alcohol Use Standard Drinks/Week Comments No 0 (1 standard drink = 0.6 oz pur e alcohol) Adolescent Education Answer Date Record ed Getting School Help Needed Not on file 08/16 Comments No Sex and Gender Information Value Date Recorded Sex Assigned at Not on file Legal Sex Female 4:33 AM CALL WORKER Gender Identity Not on file Sexual Orientation Not on file Last Filed Vital Signs Vital Sign Reading Time Taken Comments Blood Pressure 173/97 08/17/2023 11:24 PM CALL WORKER Pulse 70 08/17/2023 11:24 PM CALL WORKER Temperature 36.7 C (98 F) 08/17/2023 11:24 PM CALL WORKER Respiratory Rate 18 08/17/2023 11:24 PM CALL WORKER Oxygen Saturation 99% 08/17/2023 11:24 PM CALL WORKER Inhaled Oxygen Concentration - - Weight 57.2 kg (126 lb) 06/28/2015 8:00 PM CALL WORKER Height 165.1 cm (5' 5) 06/28/2015 8:00 PM CALL WORKER Body Mass Index 20.97 06/28/2015 8:00 PM CALL WORKER Plan of Treatment Health Maintenance Due Date Last Done Comments ADVANCE CARE PLANNING 1950 ANNUAL REVIEW OF HM ORDERS [address] CT COLONOGRAPHY 1950 FIT 1950 FLEX SIG 1950 GLUCOSE 1950 TSH W/FREE T4 REFLEX 1949 LIPID 1989 ZOSTER IMMUNIZATION (1 of 2) 1999 Pneumococcal Vaccine: 50+ Years (2 of 2 - PCV) 11/04/2009 11/04/2008 FALL RISK ASSESSMENT 2014 COLONOSCOPY 10/13/2015 10/12/2005 DTAP/TDAP/TD IMMUNIZATION (2 - Td or Tdap) 10/03/2017 10/04/2007 MEDICARE ANNUAL WELLNESS VISIT 01/18/2022 01/18/2021, 07/30/2017 COVID-19 Vaccine ( season) 2024 INFLUENZA VACCINE (#1) 2024 04/04/2006 COLORECTAL CANCER SCREENING 03/21/2024 sDNA (Cologuard) 03/21/2024 03/21/2021, 03/21/2021, 03/10/2018 RSV VACCINE (1 - 1-dose 75+ series) 2024 PHQ-2 (once per calendar year) 2024 DEXA 01/19/2036 01/18/2021 MAMMO SCREENING Discontinued 07/11/2016 HEPATITIS C SCREENING Completed 01/18/2021 HPV IMMUNIZATION Aged Out No longer e [...] CDT) COLONOSCOPY Endoscopy Patient Name: Lenora Suggs Gender: F Procedure Date: 10/12/2005 9:20 AM Date of : 1950 Age: 55 Admit Type: Outpatient Attending MD: Juni Kendrick Procedure: Colonoscopy Indications: Avg risk screening for malignant neoplasm in the colon Providers: Juni Kendrick MD Referring MD: Santy Clarke MD Medicines: Fentanyl 100 mcg IV, Midazolam 2 mg IV, Atropine 0.6 mg IV Complications: No immediate complications Procedure: - A History and Physical has been performed, and patient medication allergies have been reviewed. The patient The risks and benefits of the procedure and the sedation options and risks were discussed with the patient. All questions were answered and informed consent was obtained. Patient identification and proposed procedure were verified prior to the procedure by the physician in the procedure room. Mental Status Examination: normal. Respiratory Examination: clear to auscultation. CV Examination: normal. ASA Grade Assessment: P1 A normal healthy patient. After reviewing the risks and benefits, the patient was deemed in satisfactory condition to undergo the procedure. The anesthesia plan was to use moderate sedation / analgesia (conscious sedation). Immediately prior to administration of medications, the patient was re-assessed for adequacy to receive sedatives. The heart rate, respiratory rate, oxygen saturations, blood pressure, adequacy of pulmonary ventilation, and response to care were monitored throughout the procedure. The physical status of the patient was re-assessed after the procedure. After obtaining informed consent, the colonoscope was passed under direct vision. Throughout the procedure, the patient's blood pressure, pulse, and oxygen saturations were monitored continuously. The [id number] #[id number] was introduced through the anus and advanced to the cecum, identified by appendiceal orifice & IC valve. The colonoscopy was accomplished without difficulty. The patient tolerated the procedure well. The quality of the prep was excellent. Findings: The digital rectal exam was normal. The rectum, sigmoid colon, descending colon, splenic flexure, transverse colon, hepatic flexure, ascending colon, cecum and ileocecal valve were normal. The retroflexed view of the anal verge was normal and showed no anal or rectal abnormalities. Impression: - The rectum, sigmoid colon, descending colon, splenic flexure, transverse colon, hepatic flexure, ascending colon, cecum and ileocecal valve are normal. Recommendation: - Discharge patient to home (ambulatory). - Collect hemoccults on three spontaneously passed stools annually. - Flexible Sigmoidoscopy in 3 years. - Return to primary care provider PRN. CPT Code(s): 11437, Colonoscopy, flexible, proximal to splenic flexure; diagnostic, with or without collection of specimen(s) by brushing or washing, with or without colon decompression (separate procedure) ICD Code(s): V76.51, Special Screening For Malignant Neoplasms, Colon The codes documented in this report are preliminary and upon firebrick layer helper review may be revised to meet current compliance requirements. Kenya Kendrick M.D Juni Kendrick MD Signed Date: 10/12/2005 10:00 AM Number of Addenda: 0 I was physically present for the entire viewing portion of the exam. Note generated on 10/12/2005 9:21 AM RADIOLOGY RESULTS COLONOSCOPY RADIOLOG Y RESULTS 10/12/2005 9:20 AM CDT us Juni Kendrick MD PROCEDURES Final Result RADIOLOGY RESULTS from Last 3 Months or Most Recently Relevant to Health Maintenance Insurance UCARE MEDICARE UCARE MEDICARE Care Teams Advertising Sales Associate Relationship Specialty Start Date End Date [facility] [place] [address] [place] [address] PCP - General 02/09/15
--- NOTE | 2024-08-02 15:24 | CRLHL7_ITS ---
For Patients: As a result of the Century Cures Act, medical imaging exams and procedure reports are released immediately into your electronic medical record. You may view this report before your referring provider. If you have questions, please contact your health care provider. INDICATION: Right lower extremity swelling. TECHNIQUE: Right lower extremity Doppler venous ultrasound examination was performed. Grayscale and color Doppler images were obtained. COMPARISON: Right lower extremity Doppler venous ultrasound 04/06/2022. FINDINGS: RIGHT LOWER EXTREMITY: Common femoral vein: Fully compressible. No deep vein thrombus. Normal flow and response to augmentation on color Doppler imaging. Superficial femoral vein: Fully compressible. No deep vein thrombus. Normal flow on color Doppler imaging. Deep femoral vein: No deep vein thrombus Popliteal vein: Fully compressible. No deep vein thrombus. Normal flow on color Doppler imaging. Lower calf: The visualized posterior tibial and peroneal veins are fully compressible. No deep vein thrombus. Normal flow and response to augmentation on color Doppler imaging. Superficial veins: The greater saphenous vein remains patent and fully compressible. There is a thrombosed superficial varicose vein in the lateral aspect of the proximal calf. Soft tissues: No popliteal fossa fluid collection identified. LEFT LOWER EXTREMITY: Common femoral vein: Fully compressible. No deep vein thrombus. Normal flow and response to augmentation on color Doppler imaging. IMPRESSION: 1. No deep vein thrombus within the right lower extremity. 2. Thrombosed superficial varicose vein in the proximal calf. Dictated by Chase Conklin MD @ 08/02/2024 5:13:26 PM (Electronically Signed)
[2024-08-02 15:25] VITALS: BP 157/84; PULSE 70; RESP 18; TEMP 36.8; O2SAT 99; BMI 19.6
--- NOTE | 2024-08-02 16:52 | ED.LOWEXIN ---
HPI - Extremity Injury (Lower) General Time Seen by Provider: 16:52 Date Seen: 08/02/24 Chief Complaint: Extremity Pain/Injury, Lower Stated Complaint: blood clot in leg Time Seen by Provider: 08/02/24 16:30 Source: patient, RN notes reviewed and old records reviewed Mode of arrival: ambulatory Limitations: no limitations History of Present Illness HPI Narrative: This 74-year-old female is coming in with concern of possible blood clot or maybe even cellulitis in her right lower extremity. She was hit in the back of her calf yesterday with a metal sled. 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 She notes she has had blood clots before. She states there were 3 areas years ago when her daughter was 1st born. She states she had a blood clot after being on estrogen therapy. She notes she had 1 here a few years ago. In March of 2022, she had a thrombosed superficial varicose vein in her right calf, no DVT on review of that ultrasound. She has also had some cellulitis before. She is not aware of any wound to the leg. When she got up out of bed this morning, felt sore on the back calf, soreness did improve as she moves around. She has had no chest pain or shortness of breath associated with this. She is not on any chronic anticoagulation. No fevers. Related Data Home Medications ?Medication ?Instructions ?Recorded ?Confirmed beclomethasone dipropionate 80 2 inh inhalation Q12H 01/16/22 08/02/24 mcg/actuation HFA breath activated aerosol (Qvar RediHaler) Previous Rx's ?Medication ?Instructions ?Recorded albuterol sulfate 90 mcg/actuation 2 puff inhalation Q6H PRN 03/04/24 aerosol inhaler (Ventolin HFA) shortness of breath or wheezing #8.5 grams levothyroxine 50 mcg tablet 50 mcg PO QDAY #90 tabs 03/10/24 (Synthroid) Allergies Allergy/AdvReac Type Severity Reaction Status Date / Time sulfamethoxazole (From Allergy Mild Rash Verified 08/02/24 15:27 Bactrim) trimethoprim (From Bactrim) Allergy Mild Rash Verified 08/02/24 15:27 Review of Systems Status of ROS: Reports: 6 or more systems reviewed and unremarkable except as noted in History and below PFSH PFS Medical History Hx of deep venous thrombosis ?Z86.718 - Personal history of other venous thrombosis and embolism (ICD-10) Hx of allergic bronchopulmonary aspergillosis ?Z86.19 - Personal history of other infectious and parasitic diseases (ICD-10) Endocarditis ?I38 - Endocarditis, valve unspecified (ICD-10) Asthma ?J45.909 - Unspecified asthma, uncomplicated (ICD-10) Surgical History History of lung surgery ?Z98.890 - Other specified postprocedural states (ICD-10) Family History Maternal Grandfather Colon cancer Mother Cancer Father Leukemia Sister Diabetes Daughter Breast cancer Social History Narrative: ; ( - Enrique) daughter (Francisco) -has breast cancer who lives out of state; her other daughter lives with her, son lives in 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: [employer] Advanced Care Planning: Completed Smoking Status: Never smoker Do you use any of these nicotine containing products: None Second hand tobacco smoke exposure: No How often do you have a drink containing alcohol: never How often do you have six or more drinks on one occasion: Never AUDIT-C Alcohol total score: 0 Non-prescribed substance use: denies use Exam Const: Vital Signs, click to edit/add: Vital Signs - 24 hr 08/02/24 15:25 08/02/24 16:57 Temperature 98.2 F Pulse Rate [Right Pulse Oximeter] 70 66 Respiratory Rate 18 18 Blood Pressure [Le ft Upper Arm] 157/84 H 162/84 H Pulse Oximetry 99 99 Oxygen Delivery Me thod Room Air Room Air This 74-year-old female is alert, interactive, no apparent distress. Ambulatory into the ED of her own accord, gait is normal. Sclera clear, speaking in complete sentences. Lungs are clear, good air entry, no wheezing or crackles. CV regular rate and rhythm, no murmur, normal S1-S2. On the posterior aspect of for outer upper right calf, there is mild erythema overlying a tender segment of superficial varicose vein, probably about 6 or so cm in length. This seems to be consistent with probable superficial thrombosis. The lower calf itself is not erythematous, no edema. Knee and ankle joints unaffected. Documenting provider has reviewed patient's vital signs: yes Course Course ED Course: Patient had ultrasound ordered via triage after they reviewed the history with me. We are waiting for ultrasound imaging to be read by Radiology. After examination, I suspect this may be a superficial thrombophlebitis. Reevaluation(s) Time of Reevaluation #1: 17:48 Reevaluation #1: Reviewed with patient that this is a thrombosed superficial vein. We discussed treatment, signs and symptoms for return. She is appropriate to discharge to home for further outpatient management. Vital Signs Vital signs: Initial Vital Signs Temperature 98.2 F 08/02/24 15:25 Temperature Source Temporal Artery Scan 08/02/24 15:25 Pulse Rate 70 08/02/24 15:25 Respiratory Rate 18 08/02/24 15:25 Blood Pressure 157/84 H 08/02/24 15:25 Blood Pressure Mean 108 H 08/02/24 15:25 Blood Pressure Position Sitting 08/02/24 15:25 Pulse Oximetry 99 08/02/24 15:25 Oxygen Delivery Method Room Air 08/02/24 15:25 Vital Signs Temperature 98.2 F 08/02/24 15:25 Pulse Rate 70 08/02/24 15:25 Respiratory Rate 18 08/02/24 15:25 Blood Pressure 157/84 H 08/02/24 15:25 Pulse Oximetry 99 08/02/24 15:25 Oxygen Delivery Method Room Air 08/02/24 15:25 Temperature 98.2 F 08/02/24 15:25 Pulse Rate 66 08/02/24 16:57 Respiratory Rate 18 08/02/24 16:57 Blood Pressure 162/84 H 08/02/24 16:57 Pulse Oximetry 99 08/02/24 16:57 Oxygen Delivery Method Room Air 08/02/24 16:57 Discharge Plan Discharge Clinical Impression: Acute superficial venous thrombosis of right lower extremity Patient Disposition: Home, Self-Care Condition: Stable Instructions: Superficial Thrombophlebitis (ED) Additional Instructions: Recommend an aspirin daily, fine to use anywhere from 81 mg to 325 mg daily until this is resolved. Can use warm warm packs and heat on the area. If the area is increasing in size, the calf is becoming more swollen, the area is extending, do recommend re-evaluation and may need repeat ultrasound done. Do recommend recheck with your primary care provider within the next week. Activity Level: Activity as Tolerated Prescriptions: No Action Qvar RediHaler 80 mcg/actuation HFA aerosol breath activated 2 inh inhalation Q12H albuterol sulfate [Ventolin HFA] 90 mcg/actuation HFA aerosol inhaler 2 puff inhalation Q6H PRN (Reason: shortness of breath or wheezing) Qty: 8.5 3RF levothyroxine [Synthroid] 50 mcg tablet 50 mcg PO QDAY Qty: 90 3RF Follow Up/Referrals: Kelley Blair PA-C [Primary Care Provider] - Stand Alone Forms: WorldAPP Info Instructions
[2024-08-02 16:57] VITALS: BP 162/84; PULSE 66; RESP 18; O2SAT 99
--- OUTSIDE RECORDS SUMMARY | 2024-08-02 17:03 | XMS_ITS | Clinical Summary ---
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 other [...] (ABNORMAL) LIPID PANEL W REFLEX MEASURED LDL [[id number]] (01/18/2021 9:31 AM CDT) [facility] CHOLESTEROL,TOTAL 214(H) 100 - 199 mg/dL 01/18/2021 2:18 PM CDT [facility] TRIGLYCERIDES 58 <150 mg/dL 01/18/2021 2:18 PM CDT [facility] HDL CHOLESTEROL 76 >40 mg/dL 2:18 PM CDT [facility] NON-HDL CHOLESTEROL 138 <145 mg/dl 01/18/2021 2:18 PM CDT [facility] CHOL/HDL RATIO 2.82 <4.50 01/18/2021 2:18 PM CDT [facility] LDL CHOLESTEROL 126 <=130 mg/dL 01/18/2021 2:18 PM CDT [facility] VLDL CHOLESTEROL 12 mg/dL 01/19/20 2:18 PM CDT [facility] PROVIDER ORDERED STATUS RANDOM 01/18/2021 2:18 PM CDT [facility] Blood BLOOD SPECIMEN / Unknown Butterfly / Unknown 01/18/2021 9:31 AM CDT 01/18/2021 9:35 AM CDT Abi ROSE CHEMISTRY Final R esult [facility] [address] [place] [address], * ANTI HCV (01/18/2021 9:31 AM CDT) HEPATITIS C ANTIBODY Non-React benjamin Non-React benjamin 01/18/2021 2:34 PM CDT [facility] Comment:Antibodies to HCV no t detected; does not exclude the possibility of exposure to HCV. Blood BLOOD SPECIMEN / Unknown Butterfly / Unknown 01/18/2021 9:31 AM CDT 01/18/2021 9:35 AM CDT Abi ROSE SEND OUTS Final R esult [facility] [address] [place] [address], from Last 3 Months or Most Recently Relevant to Health Maintenance Insurance [employer] MEDICARE ADVANTAGE MR Care Teams School Child Care Attendant Relationship Specialty Start Date End Date Abi Mccracken PA PCP - General Physician Java Developer With Security Clearance 01/18/21
--- OUTSIDE RECORDS SUMMARY | 2024-08-02 17:03 | XMS_ITS | Clinical Summary ---
Author Organization [facility] Address [address] [place] [address] Care Team Providers Care Gas Processing Plant Operator Name Role Phone Clinic, [facility] Primary Care Provide r Allergies Active Allergy [...] on file Legal Sex Female 4:33 AM CUSTOM HOME INSTALLER Gender Identity Not on file Sexual Orientation Not on file Last Filed Vital Signs Vital Sign Reading Time Taken Comments Blood Pressure 173/97 08/17/2023 11:24 PM CUSTOM HOME INSTALLER Pulse 70 08/17/2023 11:24 PM CUSTOM HOME INSTALLER Temperature 36.7 C (98 F) 08/17/2023 11:24 PM CUSTOM HOME INSTALLER Respiratory Rate 18 08/17/2023 11:24 PM CUSTOM HOME INSTALLER Oxygen Saturation 99% 08/17/2023 11:24 PM CUSTOM HOME INSTALLER Inhaled Oxygen Concentration - - Weight 57.2 kg (126 lb) 06/28/2015 8:00 PM CUSTOM HOME INSTALLER Height 165.1 cm (5' 5) 06/28/2015 8:00 PM CUSTOM HOME INSTALLER Body Mass Index 20.97 06/28/2015 8:00 PM CUSTOM HOME INSTALLER Plan of Treatment Health Maintenance Due Date [...] oxygen saturations were monitored continuously. The PCF-Q180AL #[id number] was introduced through the anus and advanced [...] to primary care provider PRN. CPT Code(s): 03054, Colonoscopy, flexible, proximal to splenic flexure; diagnostic, with or without collection of specimen(s) by brushing or washing, with or without colon decompression (separate procedure) ICD Code(s): V76.51, Special Screening For Malignant Neoplasms, Colon The codes documented in this report are preliminary and upon engineering administrator review may be revised to meet current [...] Insurance UCARE MEDICARE UCARE MEDICARE Care Teams Gas Processing Plant Operator Relationship Specialty Start Date End Date Dorothy Corral [place] [address] [place] [address] PCP - General 02/09/15
--- OUTSIDE RECORDS SUMMARY | 2024-08-02 17:03 | XMS_ITS | Clinical Summary ---
Author Organization [facility] Address [address] [place] [address] Care Team Providers Care Ship'S Officer Name Role Phone Needs Pcp, Assignment Primary Care Provider [phone] Source Comments You are receiving this document as you are listed as the primary care provider,follow-up provider, or the patient has been referred to you for consultation.This is in compliance with the Medicare and[facility] EHR Incentive Program,which states Providers who transition their patient to another setting of careor provider of care or refers their patient to another provider of care shouldprovide summary care record for each transition of care or referral. [employer] Allergies Active Allergy Reactions Criticality Noted Date [...] Comments Blood Pressure 112/62 06/09/2019 2:56 PM YARN TEXTURE MACHINE OPERATOR Pulse 73 06/09/2019 2:56 PM YARN TEXTURE MACHINE OPERATOR Temperature 36.8 C (98.3 F) 06/09/2019 2:56 PM YARN TEXTURE MACHINE OPERATOR Respiratory Rate 20 06/09/2019 2:56 PM YARN TEXTURE MACHINE OPERATOR Oxygen Saturation 100% 06/09/2019 2:56 PM YARN TEXTURE MACHINE OPERATOR Inhaled Oxygen Concentration - - Weight - [...] age to complete this topic Care Teams Ship'S Officer Relationship Specialty Start Date End Date Needs Pcp, [place] [address] PCP - General 02/03/15
== END 2024-08-02 17:52 | disposition home or self-care (01) ==
PROVIDERS: Emergency Provider Family Medicine; PCP Physician Assistant Medical
DX: I82.811 Embolism and thrombosis of superficial veins of right lower extremity (principal); W22.8XXA Striking against or struck by other objects, initial encounter
CPT/HCPCS: 93971; 99283

== ENCOUNTER 2024-08-05 15:58 | Outpatient (CLI) | payer MEDICARE, SELFPAY | END 2024-08-05 15:59 | disposition home or self-care (01) | LOC: CT 15:58 | PROVIDERS: PCP Physician Assistant Medical; Visit Provider Otolaryngology | DX: J32.9 Chronic sinusitis, unspecified (principal) | CPT/HCPCS: 70486 ==

== ENCOUNTER 2024-12-02 10:44 | Outpatient (CLI) | payer MEDICARE, SELFPAY | END 2024-12-02 10:45 | disposition home or self-care (01) | PROVIDERS: PCP Physician Assistant Medical; Visit Provider Physician Assistant Medical | DX: R07.9 Chest pain, unspecified (principal); R06.02 Shortness of breath; R53.83 Other fatigue; Z98.890 Other specified postprocedural states; Z79.899 Other long term (current) drug therapy | CPT/HCPCS: 80053; 82607; 82728; 84443 ==

== ENCOUNTER 2024-12-04 10:06 | Outpatient (CLI) | payer MEDICARE, SELFPAY ==
--- NOTE | 2024-12-04 10:00 | CRLHL7_ITS ---
For Patients: As a result of the Century Cures Act, medical imaging exams and procedure reports are released immediately into your electronic medical record. You may view this report before your referring provider. If you have questions, please contact your health care provider. INDICATION: SOB. RT CP COMPARISON: none TECHNIQUE: CT volumetric acquisition was performed of the thorax during intravenous infusion of 95 cc Isovue 370 nonionic intravenous contrast. Please note that all CT scans at this facility use dose modulation, iterative reconstruction, and/or weight-based dosing when appropriate to reduce radiation dose to as low as reasonably achievable. FINDINGS: No pulmonary embolism. Focal density is present within the left lower lobe adjacent to the posterior heart border measuring 1.8 cm. Small air bubbles are present within this area. The adjacent airway lovell are thickened. Mild bronchiectasis noted within the adjacent left lung base. Patchy areas of bronchial wall thickening present elsewhere bilaterally. Ill-defined densities within the posterior segment of the right upper lobe. Biapical pleural-parenchymal scarring with subpleural nodularity. No fracture. No adenopathy. Upper abdomen unremarkable. Visualized thyroid unremarkable. IMPRESSION: COPD with chronic bronchitis. Patchy multifocal bronchial wall thickening bilaterally. Patchy areas of bronchiectasis also noted. Focal ill-defined densities within the posterior segment of the right upper lobe which could be inflammatory. Soft tissue density within the left lower lobe adjacent to the posterior heart border measuring 1.8 cm may represent round atelectasis versus infiltrate. Follow-up noncontrast CT in 3 months recommended. Please note that all CT scans at this facility use dose modulation, iterative reconstruction, and/or weight-based dosing when appropriate to reduce radiation dose to as low as reasonably achievable. Dictated by Guero Santos MD @ 12/04/2024 11:16:38 AM (Electronically Signed)
--- OUTSIDE RECORDS SUMMARY | 2024-12-04 10:48 | XMS_ITS | Clinical Summary ---
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 Gender Identity Not on file Sexual Orientation [...] Health Maintenance Due Date Last Done Comments Depression screening for age 12+ 1961 Zoster (shingles) series for age 50+ (1 of 2) 1999 Pneumococcal series for age 50+ (2 of 2 - PCV) 11/04/2009 11/04/2008 Tetanus booster 10/03/2017 10/04/2007 BMI (ht and wt on same day) for age 18+ 01/18/2022 01/18/2021 Medicare Wellness for age 65+ 01/19/2022 01/18/2021 COVID-19 vaccine series (1 - 2023- season) 2024 RSV vaccine for adults or (1 - 1-dose 75+ series) 2024 Influenza Vaccine (Season Ended) 2025 04/04/2006 Lipids for age 45-75 01/18/2026 01/18/2021 Fecal testing sDNA-FIT (Cologuard) for age 45-75 03/31/2027 03/31/2024, 03/21/2021, 03/21/2021, Additional history exists Tdap Completed 10/04/2007 DEXA/DXA scan for age 65+ Completed 01/18/2021 Hepatitis C screening for age 18-79 Completed 01/18/2021 Hepatitis B series for 19+ Aged Out N o longer eligible based on patient's age to complete [...] XR DXA BONE DENSITY 2 SITES AXIAL [62821.1] (01/18/2021 10:18 AM CDT) Anatomical Region Laterality [...] BONE DENSITY 2 SITES AXIAL LOCATION: [facility] DATE/TIME: 01/18/2021 10:18 AM INDICATION: I. other [...] result of the Century Cures Act, medical imagingexams and procedure reports are released immediately into your electronicmedical record. You may view this report before your referring provider.If you have questions, please contact your health care provider. EXAM: XR DXA BONE DENSITY 2 SITES AXIAL LOCATION: [facility] DATE/TIME: 01/18/2021 10:18 AM INDICATION: I. [...] two-fold for each SD decrease in T-score. us Abi ROSE DEXA Final R esult * (ABNORMAL) LIPID PANEL W REFLEX MEASURED LDL [[id number]] (01/18/2021 9:31 AM CDT) [facility] CHOLESTEROL,TOTAL 214(H) 100 - 199 mg/dL 01/18/2021 2:18 PM CDT [facility] TRIGLYCERIDES 58 <150 mg/dL 01/18/2021 2:18 PM CDT [facility] HDL CHOLESTEROL 76 >40 mg/dL 2:18 PM CDT [facility] NON-HDL CHOLESTEROL 138 <145 mg/dl 01/18/2021 2:18 PM CDT [facility] CHOL/HDL RATIO 2.82 <4.50 01/18/2021 2:18 PM CDT [facility] LDL CHOLESTEROL 126 <=130 mg/dL 01/18/2021 2:18 PM CDT [facility] VLDL CHOLESTEROL 12 mg/dL 01/19/20 2:18 PM CDT [facility] PROVIDER ORDERED STATUS RANDOM 01/18/2021 2:18 PM CDT [facility] Blood BLOOD SPECIMEN / Unknown Butterfly / Unknown 01/18/2021 9:31 AM CDT 01/18/2021 9:35 AM CDT Abi ROSE CHEMISTRY Final R esult [facility] [address] [place] [address], * ANTI HCV (01/18/2021 9:31 AM CDT) HEPATITIS C ANTIBODY Non-React benjamin Non-React benjamin 01/18/2021 2:34 PM CDT [facility] Comment:Antibodies to HCV no t detected; does not exclude the possibility of exposure to HCV. Blood BLOOD SPECIMEN / Unknown Butterfly / Unknown 01/18/2021 9:31 AM CDT 01/18/2021 9:35 AM CDT Abi ROSE SEND OUTS Final R esult [facility] [address] [place] [address], from Last 3 Months or Most Recently Relevant to Health Maintenance Insurance UCARE MEDICARE ADVANTAGE MR Care Teams Heading Up Machine Operator Relationship Specialty Start Date End Date Abi Mccracken PA PCP - General Physician Pedodontist 01/18/21
--- OUTSIDE RECORDS SUMMARY | 2024-12-04 10:48 | XMS_ITS | Clinical Summary ---
Author Organization [place] [facility] Address [address] [place] [address] Care Team Providers Care Suction Roller Name Role Phone Clinic, [facility] Primary Care Provide r Allergies Active [...] on file Legal Sex Female 4:33 AM PROCESS CAMERA OPERATOR Gender Identity Not on file Sexual Orientation Not on file Last Filed Vital Signs Vital Sign Reading Time Taken Comments Blood Pressure 173/97 08/17/2023 11:24 PM PROCESS CAMERA OPERATOR Pulse 70 08/17/2023 11:24 PM PROCESS CAMERA OPERATOR Temperature 36.7 C (98 F) 08/17/2023 11:24 PM PROCESS CAMERA OPERATOR Respiratory Rate 18 08/17/2023 11:24 PM PROCESS CAMERA OPERATOR Oxygen Saturation 99% 08/17/2023 11:24 PM PROCESS CAMERA OPERATOR Inhaled Oxygen Concentration - - Weight 57.2 kg (126 lb) 06/28/2015 8:00 PM PROCESS CAMERA OPERATOR Height 165.1 cm (5' 5) 06/28/2015 8:00 PM PROCESS CAMERA OPERATOR Body Mass Index 20.97 06/28/2015 8:00 PM PROCESS CAMERA OPERATOR Plan of Treatment Health Maintenance Due Date Last Done Comments ADVANCE CARE PLANNING 1950 ANNUAL REVIEW OF HM ORDERS [address] CT COLONOGRAPHY 1950 DIABETES SCREENING 1949 FIT 1949 FLEX SIG 1949 TSH W/FREE T4 REFLEX 1949 LIPID 1989 ZOSTER VACCINE (1 of 2) 1999 PNEUMOCOCCAL VACCINE 50+ YEARS (2 of 2 - PCV) 11/04/2009 11/04/2008 FALL RISK ASSESSMENT 2014 COLONOSCOPY 10/13/2015 10/12/2005 DTAP/TDAP/TD VACCINE (2 - Td or Tdap) 10/03/2017 10/04/2007 MEDICARE ANNUAL WELLNESS VISIT 01/18/2022 01/18/2021, 07/30/2017, 07/30/2017 COVID-19 VACCINE ( season) 2024 COLORECTAL CANCER SCREENING 03/21/2024 sDNA (Cologuard) 03/21/2024 03/21/2021, 03/21/2021, 03/10/2018 RSV VACCINE (1 - 1-dose 75+ series) 2024 PHQ-2 (once per calendar year) 2024 INFLUENZA VACCINE (Season Ended) 2025 04/04/2006 DEXA 01/19/2036 01/18/2021 MAMMO SCREENING Discontinued 07/11/2016 HEPATITIS C SCREENING Completed 01/18/2021 HPV VACCINE Aged Out No longer eligi ble based on patient's age to complete this topic MENINGITIS VACCINE Aged Out No longer eligible based on patient's age to [...] oxygen saturations were monitored continuously. The PCF-Q180AL #[id number] was introduced through the anus and advanced [...] to primary care provider PRN. CPT Code(s): 76524, Colonoscopy, flexible, proximal to splenic flexure; diagnostic, with or without collection of specimen(s) by brushing or washing, with or without colon decompression (separate procedure) ICD Code(s): V76.51, Special Screening For Malignant Neoplasms, Colon The codes documented in this report are preliminary and upon iridologist review may be revised to meet current [...] Insurance UCARE MEDICARE UCARE MEDICARE Care Teams Suction Roller Relationship Specialty Start Date End Date Ellis, Dorohty Arnett [address] [place] [address] PCP - General 02/09/15
--- OUTSIDE RECORDS SUMMARY | 2024-12-04 10:48 | XMS_ITS | Clinical Summary ---
[facility] Address [address], [place] [address] Care Team Providers Care International Sales Representative Name Role Phone Needs Pcp, Assignment Primary Care Provider [phone] Source Comments You are receiving this document as you are listed as the primary care provider,follow-up provider, or the patient has been referred to you for consultation.This is in compliance with the Medicare and[facility] Incentive Program,which states Providers who transition their patient to another setting of careor provider of care or refers their patient to another provider of care shouldprovide summary care record for each transition of care or referral. [employer] Allergies Active Allergy Reactions Criticality Noted Date [...] Comments Blood Pressure 112/62 06/09/2019 2:56 PM CLINICAL EDUCATION COORDINATOR Pulse 73 06/09/2019 2:56 PM CLINICAL EDUCATION COORDINATOR Temperature 36.8 C (98.3 F) 06/09/2019 2:56 PM CLINICAL EDUCATION COORDINATOR Respiratory Rate 20 06/09/2019 2:56 PM CLINICAL EDUCATION COORDINATOR Oxygen Saturation 100% 06/09/2019 2:56 PM CLINICAL EDUCATION COORDINATOR Inhaled Oxygen Concentration - - Weight - - Height - - Body Mass Index - - Plan of Treatment Health Maintenance Due Date Last Done Comments Colon Cancer Screening Plan Due 1950 Hep C Screening (Preventive Services) 1950 Mammogram 1950 Adult Preventive Visit 1967 DTaP/Tdap/Td Vaccine (1 - Tdap) 1968 Pneumococcal Vaccine 50+ Yrs (1 of 1 - PCV) 1999 Zoster/Shingles Vaccine (1 of 2) 1999 COVID-19 Vaccine ( - 2023-2 5 season) 2024 RSV Vaccine (1 - 1-dose 75+ series) 2024 Influenza Vaccine (Season Ended) 2025 HepA Vaccine Aged Out No longer eligi ble based on patient's age to complete this topic HepB Vaccine Aged Out No longer eligi ble based on patient's age to complete this topic Hib Vaccine Aged Out No longer eligi ble based on patient's age to complete this topic IPV (Polio) Vaccine Aged Out No longe r eligible based on patient's age to complete this topic MCV4 Vaccine Aged Out No longer eligi ble based on patient's age to complete this topic Meningococcal B Vaccine Aged Out No l onger eligible based on patient's age to complete this topic Care Teams International Sales Representative Relationship Specialty Start Date End [place] [address] PCP - General 02/03/15
--- OUTSIDE RECORDS SUMMARY | 2024-12-05 00:06 | XMS_ITS | Clinical Summary ---
Author Organization [facility] Address [address], [place] [address] Care Team Providers Care Field Tax Auditor Name Role Phone Needs Pcp, Assignment Primary Care Provider [phone] Source Comments You are receiving this document as you are listed as the primary care provider,follow-up provider, or the patient has been referred to you for consultation.This is in compliance with the Medicare and[facility] Incentive Program,which states Providers who transition their patient to another setting of careor provider of care or refers their patient to another provider of care shouldprovide summary care record for each transition of care or referral. [employer] Allergies Active Allergy Reactions Criticality Noted Date [...] Comments Blood Pressure 112/62 06/09/2019 2:56 PM SPINDLE TESTER Pulse 73 06/09/2019 2:56 PM SPINDLE TESTER Temperature 36.8 C (98.3 F) 06/09/2019 2:56 PM SPINDLE TESTER Respiratory Rate 20 06/09/2019 2:56 PM SPINDLE TESTER Oxygen Saturation 100% 06/09/2019 2:56 PM SPINDLE TESTER Inhaled Oxygen Concentration - - Weight - [...] age to complete this topic Care Teams Field Tax Auditor Relationship Specialty Start Date End Date [place] [address] PCP - General 02/03/15
--- OUTSIDE RECORDS SUMMARY | 2024-12-05 00:07 | XMS_ITS | Clinical Summary ---
Author Organization [facility] [facility] Address [address] [place] [address] Care Team Providers Care Production Support Engineer Name Role Phone Abi Mccracken Primary Care [...] on file Legal Sex Female 7:21 AM SUSTAINABILITY COMMUNICATOR Gender Identity Not on file Sexual Orientation [...] XR DXA BONE DENSITY 2 SITES AXIAL [53151.1] (01/18/2021 10:18 AM CDT) Anatomical Region Laterality [...] BONE DENSITY 2 SITES AXIAL LOCATION: [facility] Saenz DATE/TIME: 01/18/2021 10:18 AM INDICATION: I. other [...] DXA BONE DENSITY 2 SITES AXIAL LOCATION: [facility] DATE/TIME: 01/18/2021 10:18 AM INDICATION: I. [...] (ABNORMAL) LIPID PANEL W REFLEX MEASURED LDL [[id number]] (01/18/2021 9:31 AM CDT) [facility] CHOLESTEROL,TOTAL 214(H) 100 - 199 mg/dL 01/18/2021 2:18 PM CDT [facility] TRIGLYCERIDES 58 <150 mg/dL 01/18/2021 2:18 PM CDT [facility] HDL CHOLESTEROL 76 >40 mg/dL 2:18 PM CDT [facility] NON-HDL CHOLESTEROL 138 <145 mg/dl 01/18/2021 2:18 PM CDT [facility] CHOL/HDL RATIO 2.82 <4.50 01/18/2021 2:18 PM CDT [facility] LDL CHOLESTEROL 126 <=130 mg/dL 01/18/2021 2:18 PM CDT [facility] VLDL CHOLESTEROL 12 mg/dL 01/19/20 2:18 PM CDT [facility] PROVIDER ORDERED STATUS RANDOM 01/18/2021 2:18 PM CDT [facility] Blood BLOOD SPECIMEN / Unknown Butterfly / Unknown 01/18/2021 9:31 AM CDT 01/18/2021 9:35 AM CDT Abi ROSE CHEMISTRY Final R esult [facility] [address] [place] [address], * ANTI HCV (01/18/2021 9:31 AM CDT) HEPATITIS C ANTIBODY Non-React benjamin Non-React benjamin 01/18/2021 2:34 PM CDT [facility] Comment:Antibodies to HCV no t detected; does not exclude the possibility of exposure to HCV. Blood BLOOD SPECIMEN / Unknown Butterfly / Unknown 01/18/2021 9:31 AM CDT 01/18/2021 9:35 AM CDT Abi ROSE SEND OUTS Final R esult [facility] [address] [place] [address], from Last 3 Months or Most Recently Relevant to Health Maintenance Insurance [employer] MEDICARE ADVANTAGE MR Care Teams Production Support Engineer Relationship Specialty Start Date End Date Abi Mccracken PA PCP - General Physician Debug Technician 01/18/21
--- OUTSIDE RECORDS SUMMARY | 2024-12-05 00:07 | XMS_ITS | Clinical Summary ---
Author Organization [facility] Address [address] [place] [address] Care Team Providers Care Line Crew Supervisor Name Role Phone Clinic, [facility] Primary Care Provide r Allergies [...] on file Legal Sex Female 4:33 AM GOVERNOR ASSEMBLER HYDRAULIC Gender Identity Not on file Sexual Orientation Not on file Last Filed Vital Signs Vital Sign Reading Time Taken Comments Blood Pressure 173/97 08/17/2023 11:24 PM GOVERNOR ASSEMBLER HYDRAULIC Pulse 70 08/17/2023 11:24 PM GOVERNOR ASSEMBLER HYDRAULIC Temperature 36.7 C (98 F) 08/17/2023 11:24 PM GOVERNOR ASSEMBLER HYDRAULIC Respiratory Rate 18 08/17/2023 11:24 PM GOVERNOR ASSEMBLER HYDRAULIC Oxygen Saturation 99% 08/17/2023 11:24 PM GOVERNOR ASSEMBLER HYDRAULIC Inhaled Oxygen Concentration - - Weight 57.2 kg (126 lb) 06/28/2015 8:00 PM GOVERNOR ASSEMBLER HYDRAULIC Height 165.1 cm (5' 5) 06/28/2015 8:00 PM GOVERNOR ASSEMBLER HYDRAULIC Body Mass Index 20.97 06/28/2015 8:00 PM GOVERNOR ASSEMBLER HYDRAULIC Plan of Treatment Health Maintenance Due Date [...] oxygen saturations were monitored continuously. The PCF-Q180AL #[id number] was introduced through the anus and advanced [...] to primary care provider PRN. CPT Code(s): 56207, Colonoscopy, flexible, proximal to splenic flexure; diagnostic, with or without collection of specimen(s) by brushing or washing, with or without colon decompression (separate procedure) ICD Code(s): V76.51, Special Screening For Malignant Neoplasms, Colon The codes documented in this report are preliminary and upon enrolled agent review may be revised to meet current [...] Insurance UCARE MEDICARE UCARE MEDICARE Care Teams Line Crew Supervisor Relationship Specialty Start Date End Date Ellis, Dorothy Boaz [address] [place] [address] PCP - General 02/09/15
== END 2024-12-04 10:07 | disposition home or self-care (01) ==
LOC: CT 10:07
PROVIDERS: PCP Physician Assistant Medical; Visit Provider Physician Assistant Medical
DX: R06.02 Shortness of breath (principal); J44.89 Other specified chronic obstructive pulmonary disease
CPT/HCPCS: 71275; Q9967

== ENCOUNTER 2025-03-09 09:18 | Outpatient (CLI) | payer MEDICARE, SELFPAY ==
--- NOTE | 2025-03-09 10:00 | CRLHL7_ITS ---
For Patients: As a result of the Century Cures Act, medical imaging exams and procedure reports are released immediately into your electronic medical record. You may view this report before your referring provider. If you have questions, please contact your health care provider. Indication: Three-month follow-up Technique: Noncontrast CT chest Please note that all CT scans at this facility use dose modulation, iterative reconstruction, and/or weight-based dosing when appropriate to reduce radiation dose to as low as reasonably achievable. Comparison: 12/04/2024 Findings: Calcification in the left thyroid lobe again noted. Scattered subcentimeter mediastinal lymph nodes again noted. No axillary adenopathy. Vascular calcifications. Unchanged subpleural density left lower lobe adjacent to the posterior heart border representing round atelectasis. COPD/chronic bronchitis unchanged. Persistent patchy ill-defined densities in the right upper lobe with increased ground-glass opacification in the right lung apex compared to the prior study measuring up to a proximally 3.6 cm in maximum diameter. Subpleural nodule at the left lung apex may be new since the prior study which measures 5.6 millimeters. Chronic biapical pleural parenchymal scarring. No fracture. Impression: Increased densities in the right upper lobe/right lung apex including a 3.6 cm area of ground-glass/ill-defined airspace density. Possibly new subpleural nodule at the left lung apex measuring 5.6 millimeters. Follow-up considerations include CT-PET or continued three-month follow-up CT. Alternatively, pulmonology consult could be considered. Please note that all CT scans at this facility use dose modulation, iterative reconstruction, and/or weight-based dosing when appropriate to reduce radiation dose to as low as reasonably achievable. Dictated by Guero Santos MD @ 03/09/2025 11:02:53 AM (Electronically Signed)
== END 2025-03-09 09:19 | disposition home or self-care (01) ==
LOC: CT 09:18
PROVIDERS: PCP Physician Assistant Medical; Visit Provider Physician Assistant Medical
DX: R93.89 Abnormal findings on diagnostic imaging of other specified body structures (principal)
CPT/HCPCS: 71250

== ENCOUNTER 2025-05-04 10:11 | Emergency (ER) | payer MEDICARE, SELFPAY ==
[2025-05-04 10:16] VITALS: BP 166/86; PULSE 73; RESP 18; TEMP 36.6; O2SAT 97
--- OUTSIDE RECORDS SUMMARY | 2025-05-04 10:16 | XMS_ITS | Clinical Summary ---
Author Organization [facility] Address [address] [place] [address] Care Team Providers Care Contracting Manager Name Role Phone Clinic, [facility] Primary Care Provide r Allergies Active [...] on file Legal Sex Female 4:33 AM ARCHITECTURAL DRAFTSMAN Gender Identity Not on file Sexual Orientation Not on file Last Filed Vital Signs Vital Sign Reading Time Taken Comments Blood Pressure 173/97 08/17/2023 11:24 PM ARCHITECTURAL DRAFTSMAN Pulse 70 08/17/2023 11:24 PM ARCHITECTURAL DRAFTSMAN Temperature 36.7 C (98 F) 08/17/2023 11:24 PM ARCHITECTURAL DRAFTSMAN Respiratory Rate 18 08/17/2023 11:24 PM ARCHITECTURAL DRAFTSMAN Oxygen Saturation 99% 08/17/2023 11:24 PM ARCHITECTURAL DRAFTSMAN Inhaled Oxygen Concentration - - Weight 57.2 kg (126 lb) 06/28/2015 8:00 PM ARCHITECTURAL DRAFTSMAN Height 165.1 cm (5' 5) 06/28/2015 8:00 PM ARCHITECTURAL DRAFTSMAN Body Mass Index 20.97 06/28/2015 8:00 PM ARCHITECTURAL DRAFTSMAN Plan of Treatment Health Maintenance Due Date Last Done Comments ADVANCE CARE PLANNING 1950 ANNUAL REVIEW OF HM ORDERS 1950 DIABETES SCREENING 1950 TSH W/FREE T4 REFLEX 1949 LIPID 1989 ZOSTER VACCINE (1 of 2) 1999 PNEUMOCOCCAL VACCINE 50+ YEARS (2 of 2 - PCV) 11/04/2009 11/04/2008 FALL RISK ASSESSMENT 2014 RSV VACCINE (1 - 1-dose 75+ series) 2024 PHQ-2 (once per calendar year) 2024 COVID-19 VACCINE (1 - season) 2025 INFLUENZA VACCINE (#1) 2025 04/04/2006 MEDICARE ANNUAL WELLNESS VISIT 03/04/2025 03/04/2024, 03/04/2024, 01/18/2021, Additional history exists DTAP/TDAP/TD VACCINE (3 - Td or Tdap) 03/04/2034 03/04/2024, 10/04/2007 DEXA 01/19/2036 01/18/2021 COLONOSCOPY Discontinued 10/12/2005 HEPATITIS C SCREENING Completed 01/18/2021 COLORECTAL CANCER SCREENING Discontinued MAMMO SCREENING Discontinued 03/31/2024, 03/11, 07/11/2016 sDNA (Cologuard) Discontinued 03/31/2024, 05/2021, 03/21/2021, Additional history exists CT COLONOGRAPHY Discontinued FIT Discontinued FLEX SIG Discontinued HPV VACCINE (No Doses Required) Completed MENINGITIS VACCINE Aged Out No longer eligible [...] oxygen saturations were monitored continuously. The PCF-Q180AL #[id number] was introduced through the anus and advanced [...] to primary care provider PRN. CPT Code(s): 16479, Colonoscopy, flexible, proximal to splenic flexure; diagnostic, with or without collection of specimen(s) by brushing or washing, with or without colon decompression (separate procedure) ICD Code(s): V76.51, Special Screening For Malignant Neoplasms, Colon The codes documented in this report are preliminary and upon cabin crew review may be revised to meet current [...] Insurance UCARE MEDICARE UCARE MEDICARE Care Teams Contracting Manager Relationship Specialty Start Date End Date Dorothy Corral [place] [address] [place], [place] [id number] PCP - General 02/09/15
--- OUTSIDE RECORDS SUMMARY | 2025-05-04 10:16 | XMS_ITS | Clinical Summary ---
Author Organization [employer] [facility] Address [address] [place] [address] Care Team Providers Care Sand Mill Grinder Name Role Phone Kelley Blair PA-C Primary Care Provider [phone] Allergies Active Allergy Reactions Criticality Noted Date [...] Date Diagnosed Date Congenital hypothyroidism without goiter Encounters Date Type Department Care Team Description 04/08/2025 Orders Only [facility] Scanner 1 scan: (1-Ord) INCOMING RECORDS-PFT, [facility], 04/08/2025 04/08/2025 Orders Only [facility] Scanner 1 scan: (1-Ord) INCOMING RECORDS-CT, [facility], 04/08/2025 03/29/2025 1:00 PM CDT Office Visit [facility] [address] [place] [address] Cherri Tse MD Consult (Abnormal CT chest) 03/29/2025 Travel from Last 3 Months Immunizations Immunization Administration Dates Next Due Influenza, [...] on file Legal Sex Female 7: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 GUN INSPECTOR Gender Identity Not on file Sexual Orientation [...] Sign Reading Time Taken Comments Blood Pressure 108/70 03/29/2025 12:58 PM CDT Pulse 86 03/29/2025 12:58 PM CDT Temperature - - Respiratory Rate 18 03/29/2025 12:58 PM CDT Oxygen Saturation 98% 03/29/2025 12:58 PM CDT Inhaled Oxygen Concentration - - Weight 55.3 kg (122 lb) 03/29/2025 12:58 PM CDT Height 163.8 cm (5' 4.5) 03/29/2025 12:58 PM CD T Body Mass Index 20.62 03/29/2025 12:58 PM CDT Plan of Treatment Upcoming Encounters Date Type Department Care Team (Late st Contact Info) Description 06/08/2025 11:30 AM ELECTRON GUN INSPECTOR Ancillary Procedure [facility] [address] [facility] [address] [place] [address] Health Maintenance Due Date Last Done Comments Depression screening for age 12+ 1961 Zoster (shingles) series for age 50+ (1 of 2) 1999 Pneumococcal series for age 50+ (2 of 2 - PCV) 11/04/2009 11/04/2008 Tetanus booster 10/03/2017 10/04/2007 Medicare Wellness for age 65+ 01/19/2022 01/18/2021 RSV vaccine for adults or (1 - 1-dose 75+ series) 2024 Influenza Vaccine (#1) 2025 04/04/2006 BMI (ht and wt on same day) for age 18+ 03/29/2026 03/29/2025, 01/18/2021 DEXA/DXA scan for age 65+ Completed 01/18/2021 Hepatitis C screening for ag e 18-79 Completed 01/18/2021 Hepatitis B series for 19+ Aged Out N o longer eligible based on patient's age to complete this topic Procedures Procedure Name Priority Date/Time Associated Diagnosis Comments SCAN CORRESP-IMAGING 04/08/2025 12:00 AM CDT SCAN CORRESP-DIAGNOSTICS 04/08/2025 12:00 AM CDT XR DXA BONE DENSITY 2 SITES AXIAL Routine 01/18/2021 10:18 AM CDT Postmenopausal ANTI HCV Routine 01/18/2021 9:31 AM CDT Need for hepatitis C screening test from Last 3 Months or Most Recently Relevant to Health Maintenance Results * SCAN CORRESP-DIAGNOSTICS (04/08/2025 12:00 AM CDT) us Scanner OTHER Final Result * SCAN CORRESP-IMAGING (04/08/2025 12:00 AM CDT) Anatomical Region Laterality Modality Other us Scanner OTHER Final Result * XR DXA BONE DENSITY 2 SITES AXIAL [85131.1] (01/18/2021 10:18 AM CDT) Anatomical Region Laterality [...] Abi ROSE DEXA Final R esult * ANTI HCV (01/18/2021 9:31 AM CDT) HEPATITIS C ANTIBODY Non-React benjamin Non-React benjamin 01/18/2021 2:34 PM CDT [facility] Comment:Antibodies to HCV no t detected; does not exclude the possibility of exposure to HCV. Blood BLOOD SPECIMEN / Unknown Butterfly / Unknown 01/18/2021 9:31 AM CDT 01/18/2021 9:35 AM CDT Abi ROSE SEND OUTS Final R [facility] [address] [place] [address], from Last 3 Months or Most Recently Relevant to Health Maintenance Insurance [facility] MEDICARE ADVANTAGE MR Care Teams Sand Mill Grinder Relationship Specialty Start Date End Date Kelley Blair PA-C [address] [place] [address] PCP - General Emergency Medicine 03/29/25
--- OUTSIDE RECORDS SUMMARY | 2025-05-04 10:16 | XMS_ITS | Clinical Summary ---
Author Organization [facility] Address [address] [place] [address] Care Team Providers Care Custom Protection Officer Name Role Phone Needs Pcp, Assignment Primary Care Provider [phone] Source Comments You are receiving this document as you are listed as the primary care provider,follow-up provider, or the patient has been referred to you for consultation.This is in compliance with the Medicare and[facility] EHR Incentive Program,which states Providers who transition their patient to another setting of careor provider of care or refers their patient to another provider of care shouldprovide summary care record for each transition of care or referral. [employer] Allergies Active Allergy Reactions Criticality Noted Date [...] Comments Blood Pressure 112/62 06/09/2019 2:56 PM SILVERWARE CLEANER Pulse 73 06/09/2019 2:56 PM SILVERWARE CLEANER Temperature 36.8 C (98.3 F) 06/09/2019 2:56 PM SILVERWARE CLEANER Respiratory Rate 20 06/09/2019 2:56 PM SILVERWARE CLEANER Oxygen Saturation 100% 06/09/2019 2:56 PM SILVERWARE CLEANER Inhaled Oxygen Concentration - - Weight - - Height - - Body Mass Index - - Plan of Treatment Health Maintenance Due Date Last Done Comments Hep C Screening (Preventive Services) 1950 Adult Preventive Visit 1967 DTaP/Tdap/Td Vaccine (1 - Tdap) 1968 Pneumococcal Vaccine 50+ Yrs (1 of 1 - PCV) 1999 Zoster/Shingles Vaccine (1 of 2) 1999 RSV Vaccine (1 - 1-dose 75+ series) 2024 COVID-19 Vaccine ( - 2024-2 6 season) 2025 Influenza Vaccine (#1) 2025 HepA Vaccine Aged Out No longer [...] age to complete this topic Care Teams Custom Protection Officer Relationship Specialty Start Date End Date Needs Pcp, [place] [address] PCP - General 02/03/15
--- NOTE | 2025-05-04 13:29 | ED.SOB ---
HPI - SOB/Dyspnea General Chief Complaint: Shortness of Breath/Dyspnea Stated Complaint: Weakness, short of breath Time Seen by Provider: 05/04/25 13:06 History of Present Illness HPI Narrative: This 75-year-old female comes in reporting worsening shortness of breath since last evening. She states that she does have upper respiratory symptoms but does not report any fever. She states that she when out [place] and noticed more shortness of breath upon returning and states that she continues to have increased feelings of shortness of breath. She does arrive here with normal vital signs. She has a history of asthma and has had CT imaging of her test the past few months. 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 She did use albuterol this morning and got some relief temporarily with that. She comes in simply stating that she would benefit with a steroid. She is able to talk in complete sentences and showing no sign of use of accessory muscles for breathing. Related Data Home Medications ?Medication ?Instructions ?Recorded ?Confirmed beclomethasone dipropionate 80 2 inh inhalation Q12H 01/16/22 05/04/25 mcg/actuation HFA breath activated aerosol (Qvar RediHaler) Previous Rx's ?Medication ?Instructions ?Recorded levothyroxine 50 mcg tablet 50 mcg PO QDAY #90 tabs 08/05/24 (Synthroid) albuterol sulfate 90 mcg/actuation 2 puff inhalation Q6H PRN 03/16/25 aerosol inhaler (Ventolin HFA) shortness of breath or wheezing #8.5 grams methylprednisolone 4 mg tablets in See Rx Instructions PO .COMPLEX 05/04/25 a dose pack (Medrol (Tyrel)) #21 ea Allergies Allergy/AdvReac Type Severity Reaction Status Date / Time sulfamethoxazole (From Allergy Mild Rash Verified 05/04/25 10:19 Bactrim) trimethoprim (From Bactrim) Allergy Mild Rash Verified 05/04/25 10:19 Review of Systems Status of ROS: Reports: 10 or more systems reviewed and unremarkable except as noted in History and below Narrative: Constitutional: No fevers, no weight gain or loss. Eyes: No discharge. No vision changes. HENT: No sore throat, no ear pain. She reports nasal congestion. Cardiovascular: No chest pain, no palpitations. Respiratory: Shortness of breath as described above. Occasional cough. Gastrointestinal: No abdominal pain, no vomiting, no diarrhea. Genitourinary: No dysuria, no hematuria. Musculoskeletal: Normal range of motion. Skin: No rashes, no pruritis. Neurological: No dizziness, weakness, sensory change, speech change. Endo/Heme/Allergies: No bruising or bleeding. No polydipsia. Pysch: no suicidality, no anxiety, no insomnia. All other systems reviewed and are negative. [facility] Medical History Hx of deep venous thrombosis ?Z86.718 - Personal history of other venous thrombosis and embolism (ICD-10) Hx of allergic bronchopulmonary aspergillosis ?Z86.19 - Personal history of other infectious and parasitic diseases (ICD-10) Endocarditis ?I38 - Endocarditis, valve unspecified (ICD-10) Asthma ?J45.909 - Unspecified asthma, uncomplicated (ICD-10) Surgical History History of lung surgery ?Z98.890 - Other specified postprocedural states (ICD-10) Family History Maternal Grandfather Colon cancer Mother Cancer Father Leukemia Sister Diabetes Daughter Breast cancer Social History Narrative: ; ( - Enrique) daughter (Francisco) -has breast cancer who lives out of state; her other daughter lives with her, son lives in [facility]) One of her adult daughters spouse, with their 3 children Never Smoker 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 HEENT: Normocephalic, atraumatic. Neck: Normal range of motion. Nontender. Supple. Heart: Regular. No murmurs. Normal rate. Intact distal pulses. Lungs: Clear to auscultation. No chest discomfort. No wheezes, rhonchi, or rales. Abdomen: Normal bowel sounds. Nontender. No rebound tenderness. Genitalia: Deferred. Back: No midline tenderness. Normal range of motion. Extremities: Normal range of motion. No injury. Skin: Intact. No rash. Warm. No erythema or pallor. Neurologic: No altered sensation. No weakness. Alert and oriented. Psychiatric: No suicidality. No anxiety or depression. No insomnia. Nursing notes and vitals signs are reviewed. Const: Vital Signs, click to edit/add: Vital Signs - 24 hr 05/04/25 10:16 05/04/25 13:39 Temperature 97.8 F 97.8 F Pulse Rate [Pulse Oximeter] 73 81 Respiratory Rate 18 18 Blood Pressure [Ri t Upper Arm] 166/86 H 159/96 H Pulse Oximetry 97 97 Oxygen Delivery Me thod Room Air Room Air Course Vital Signs Vital signs: Initial Vital Signs Temperature 97.8 F 05/04/25 10:16 Temperature Source Temporal Artery Scan 05/04/25 10:16 Pulse Rate 73 05/04/25 10:16 Respiratory Rate 18 05/04/25 10:16 Blood Pressure 166/86 H 05/04/25 10:16 Blood Pressure Mean 112 H 05/04/25 10:16 Blood Pressure Position Sitting 05/04/25 10:16 Pulse Oximetry 97 05/04/25 10:16 Oxygen Delivery Method Room Air 05/04/25 10:16 Vital Signs Temperature 97.8 F 05/04/25 10:16 Pulse Rate 73 05/04/25 10:16 Respiratory Rate 18 05/04/25 10:16 Blood Pressure 166/86 H 05/04/25 10:16 Pulse Oximetry 97 05/04/25 10:16 Oxygen Delivery Method Room Air 05/04/25 10:16 Temperature 97.8 F 05/04/25 13:39 Pulse Rate 81 05/04/25 13:39 Respiratory Rate 18 05/04/25 13:39 Blood Pressure 159/96 H 05/04/25 13:39 Pulse Oximetry 97 05/04/25 13:39 Oxygen Delivery Method Room Air 05/04/25 13:39 MDM - SOB/Dyspnea MDM Narrative Medical decision making narrative: This patient has a history of asthma and comes in reporting worsening shortness of breath with exertion since yesterday. She states that this kind of thing happens when she gets an upper respiratory infection. She arrives here with normal vital signs and is in no acute distress. She is able to speak in complete sentences. Her exam also is reassuring. I did discuss x-ray imaging and lab results that can be done. 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 She states that she would simply benefit from a steroid at times like this. I did provide a prescription for Medrol Dosepak. She does have albuterol that can also be used as needed. Discharge Plan Discharge Clinical Impression: Asthma with acute exacerbation, Acute upper respiratory infection Patient Disposition: Home, Self-Care Condition: Stable Additional Instructions: Take medication as prescribed. Activity as tolerated. Follow up with MD as scheduled or return if symptoms are persistent or worsening. Prescriptions: New methylprednisolone [Medrol (Tyrel)] 4 mg tablets,dose pack See Rx Instructions .ROUTE .COMPLEX Qty: 21 1RF Rx Instructions: orally per package directions No Action Qvar RediHaler 80 mcg/actuation HFA aerosol breath activated 2 inh inhalation Q12H levothyroxine [Synthroid] 50 mcg tablet 50 mcg PO QDAY Qty: 90 3RF albuterol sulfate [Ventolin HFA] 90 mcg/actuation HFA aerosol inhaler 2 puff inhalation Q6H PRN (Reason: shortness of breath or wheezing) Qty: 8.5 2RF Follow Up/Referrals: Kelley Blair PA-C [Primary Care Provider, Family Practice] Stand Alone Forms: [employer] Info Instructions
--- OUTSIDE RECORDS SUMMARY | 2025-05-04 13:37 | XMS_ITS | Patient Health Record ---
Author Organization [facility] Address [address] [place] [address] Care Team Providers Care Science Writer Name Role Phone None, None Primary Care Provider HARJIT Abernathy Unavailable [phone] Lui Aggarwal Unavailable Unavailable Allergies Allergen (clinical drug ingredient) Drug/Non Drug Allergy documented on EMR Reaction Allergy Type Onset Date Status sulfamethoxazole / trimethoprim Bactrim Unknown Drug Allergy Active Reason For Referral No Information Social History Tobacco Use: Social History Observation Description Date Details (start date - stop date) Never Smoker NA - NA Social History Alcohol Use: Social Info Question Answer Notes Recreational drugs Have you used drugs other than those for medical reasons in the past 12 months? No Alcohol Screen Did you have a drink containing alcohol in the past year? No Points 0 Interpretation Negative Tobacco Use: Social Info Question Answer Notes Tobacco use/smoking Are you a nonsmoker Problems Problem Type SNOMED Code ICD Code Onset Dates Problem Status W/U Status Risk Notes Problem Polyp of nasal sinus (disorder) (48648948) Nasal polyp (J33.9) Active confirmed Problem Deviated nasal septum (858469216) Deviated nasal septum (J34.2) Active confirmed Plan Of Treatment No Information Insurance Providers Payer Name Payer Address Payer Phone Subscriber Number Group Number Insured Name Patient Relationship to Insured Coverage Start Date Coverage End Date [employer] Medicare Plans [address] [place], [place] [id number] Lenora Suggs Self - patient is the insured Medical (General) History Medical History History ICD Code Asthma Thyroid disease Nasal polyp J33.9 Surgical History Surgery Date(Month/Year) Tubal ligation
[2025-05-04 13:39] VITALS: BP 159/96; PULSE 81; RESP 18; TEMP 36.6; O2SAT 97
== END 2025-05-04 13:46 | disposition home or self-care (01) ==
PROVIDERS: Emergency Provider Emergency Medicine Emergency Medical Services; PCP Physician Assistant Medical
DX: J45.901 Unspecified asthma with (acute) exacerbation (principal); J06.9 Acute upper respiratory infection, unspecified
CPT/HCPCS: 99284

== ENCOUNTER 2025-05-21 09:47 | Outpatient (CLI) | payer MEDICARE, SELFPAY | END 2025-05-21 09:48 | disposition home or self-care (01) | PROVIDERS: PCP Physician Assistant Medical; Visit Provider Physician Assistant Medical | DX: R42 Dizziness and giddiness (principal); R00.2 Palpitations; R53.83 Other fatigue | CPT/HCPCS: 80053; 80061; 84443; 86618; 87468; 87469; 87484; 87798 ==

== ENCOUNTER 2025-05-25 09:55 | Outpatient (CLI) | payer MEDICARE, SELFPAY | END 2025-05-25 09:56 | disposition home or self-care (01) | LOC: NFLDREF 05-30 17:21 | PROVIDERS: PCP Physician Assistant Medical; Referring Provider Physician Assistant Medical; Visit Provider Physician Assistant Medical | DX: R53.83 Other fatigue (principal) | CPT/HCPCS: 87468; 87469; 87484; 87798 ==

== ENCOUNTER 2025-06-01 07:45 | Outpatient (CLI) | payer MEDICARE, SELFPAY ==
[2025-06-01] MEDS: REGADENOSON 0.4 MG/5 ML SYRINGE IVP (09:06)
[2025-06-01 09:25] VITALS: BP 128/72; PULSE 64; RESP 16; O2SAT 99
--- NOTE | 2025-06-01 13:49 | P.STN_ITS ---
Stress Test Note Date Date of test: 06/01/25 Providers Primary care provider: Kelley Blair Stress test physician: Teodoro Gomez Stress Test Note Stress test ordered: Lexiscan Indication for test: Chest pain Stress test medicine: Lexiscan Results discussion: Patient is a very nice lady who presents for the above test, after discussion the risks benefits and side effects she would like to proceed pretest EKG shows narrow complex, with no acute ST wave changes, her rate is 57 her blood pressure 152/176. Indication for test with left bundle-branch block, and this did become apparent, over 100 heart rate. Standard Lexiscan protocol is done walking, she had absolutely no complications secondary to this. No subjective symptoms, she did have a left bundle-branch block morphology noted. Impression: Negative electrographic portion of walking Lexiscan, she did have a left bundle- branch block, which appeared to be heart rate related. Follow up suggested: Negative electrographic portion of Lexiscan, await for nuclear images to be read by Cardiology. Follow-up after this occurs. Clinical correlation with this will be needed
== END 2025-06-01 07:46 | disposition home or self-care (01) ==
LOC: STRESS 07:47
PROVIDERS: PCP Physician Assistant Medical; Visit Provider Physician Assistant Medical
DX: R06.00 Dyspnea, unspecified (principal); I44.7 Left bundle-branch block, unspecified; R07.89 Other chest pain
CPT/HCPCS: 78452; 93016; 93017; A9500; J2785

== ENCOUNTER 2025-06-08 14:29 | Outpatient (CLI) | payer MEDICARE, SELFPAY ==
--- NOTE | 2025-06-08 15:00 | CRLHL7_ITS ---
For Patients: As a result of the Century Cures Act, medical imaging exams and procedure reports are released immediately into your electronic medical record. You may view this report before your referring provider. If you have questions, please contact your health care provider. XR DXA Bone Mineral Density (BMD) Reason for exam: Encounter for screening for osteoporosis. Current height (in): 64.5. Weight (lb): 119.0. Menopause age: 52. Ethnicity: White. 1. Have you had a previous hip or vertebral fracture? No. 2. Have you had any fractures during your adult life which did not result from significant trauma (e.g., auto accident)? No. 3. Did either of your parents have a hip fracture? No. 4. Do you smoke? No. 5. Have you ever taken Glucocorticoids? Yes. 6. Do you have rheumatoid arthritis? No. 7. Do you have secondary osteoporosis? No. 8. Do you drink 3 or more alcoholic drinks per day? No. 9. Are you being treated for osteoporosis? No. 10. Have you ever taken any of the following medications: Actonel, Evista, Fosamax, Miacalcin, Reclast, Boniva, Forteo, HRT (i.e. estrogen/hormone therapy), Protelos, Prolia, Vitamin D, Calcium, other ??? please specify. ANSWER: Yes, Fosamax. 11. Do you have any of the following medical conditions: Anorexia or bulimia, asthma or emphysema, end stage renal disease, hyperparathyroidism, any seizure disorders, cancer, inflammatory bowel diseases, hysterectomy, other ??? please specify. ANSWER: Yes, asthma or emphysema. 12. What was your maximum height (inches)? 66.5. 13. Do you perform weight bearing exercise regularly? Yes. 14. Do you regularly consume dairy products? Yes. 15. Do you drink caffeinated beverages? Yes. 16. At what age did your period start? 16. 17. Are you premenopausal? No. 18. How many full term pregnancies have you had? 3. 19. Have you ever missed your period for more than 6 months in a row (not including or menopause)? No. TECHNIQUE: Bone mineral density study was performed using the [employer]. FINDINGS: The results of the study expressed as bone mineral density (BMD) are as follows: Lumbar spine L1 to L4: BMD: 0.806 g/cm2. T-score: -2.2. Z-score: 0.3. Neck Left: BMD: 0.561 g/cm2. T-score: -2.6. Z-score: -0.5. Right: BMD: 0.625 g/cm2. T-score: -2.0. Z-score: 0.1. Total Left: BMD: 0.723 g/cm2. T-score: -1.8. Z-score: 0.0. Right: BMD: 0.744 g/cm2. T-score: -1.6. Z-score: 0.2. IMPRESSION: Osteoporosis. Guero Santos M.D. Diagnostic Radiologist [email or web address] bM/Dictated by: Guero Santos MD @ 06/09/2025 10:24:00 AM (Electronically Signed)
== END 2025-06-08 14:30 | disposition home or self-care (01) ==
LOC: RAD 14:30
PROVIDERS: PCP Physician Assistant Medical; Visit Provider Physician Assistant Medical
DX: Z13.820 Encounter for screening for osteoporosis (principal); M85.89 Other specified disorders of bone density and structure, multiple sites
CPT/HCPCS: 77080